=== PATIENT | female | born 1955 | race American Indian/Alaskan Native ===

== ENCOUNTER 2018-05-18 16:04 | Emergency (ER) | payer OTHER ==
[2018-05-18 17:04] LABS: Hematocrit 38.3 % (30.3-42.9); Hemoglobin 12.2 gm/dl (10.1-14.3); Mean Corpuscular HGB Conc 32 % (30-34); Mean Corpuscular Volume 82 fl (79-97); Platelet Count 126 K/mm3 (140-440); Red Blood Count 4.68 M/mm3 (3.65-5.03); Red Cell Distribution Width 16.8 % (13.2-15.2)
[2018-05-18 17:22] LABS: BUN/Creatinine Ratio 19; Blood Urea Nitrogen 19 mg/dL (7-17); Calcium 9.3 mg/dL (8.4-10.2); Hemolysis Index 12
--- NOTE | 2018-05-18 20:47 | Cat Scan Report ---
FINAL REPORT PROCEDURE: CT HEAD WO CONTRAST TECHNIQUE: Computerized tomography of the head was performed without contrast material. HISTORY: h/a dizziness COMPARISON: No prior studies are available for comparison. FINDINGS: Brain: There is no evidence of intracranial hemorrhage. No parenchymal hemorrhage is seen. No mass lesions or mass effect is identified. No abnormal extra-axial fluid collections or masses are seen. There is some decreased density seen in the periventricular white matter without mass effect. This i s fairly symmetric and does not exhibit any mass effect consistent with gliosis probably on the basis of microvascular disease or white matter changes of aging. Ventricles: The ventricles, sulcal pattern and fissures are prominent consistent with atrophy. Bones: No evidence of acute fracture. Paranasal sinuses: There is opacification of most of the ethmoid air cells. The left side of the sphe noid sinus is also opacified. There is mucosal thickening in the visualized portion of the right sphe noid sinus. Mucosal thickening and an air-fluid level is present in the left frontal sinus. There duarte ears to be some frothy mucous in the visualized portion of the right frontal sinus. Mastoid air cells: Visualized portions are clear. IMPRESSION: There is evidence of atrophy and gliosis. No acute intracranial abnormalities are identified. Diffuse paranasal sinus disease as described. This is fairly extensive. Air-fluid level and mucosal t hickening in the left frontal sinus suggest acute sinusitis.
--- NOTE | 2018-05-18 22:04 | Emergency Department Report ---
ED Headache HPI - General Chief Complaint: Headache Stated Complaint: HEADACHE/NOSE BLEED Time Seen by Provider: 05/18/18 21:55 - History of Present Illness Initial Comments: Patient is 62 years old female with history of hypertension and recent balloon and sinusplasty surgery last Friday. Patient presented to the ER complaining of headache and unable to breathe out of her right nasal passage. She also complained of right facial swelling. Patient stated that she tried to call ENT but no answer. Patient denied any fever, chills, weakness numbness or tingling sensation. Timing/Duration: 24 hours Quality: moderate Head Injury Location: frontal Recent Head Trauma: no recent headache/trauma Modifying Factors: worse with: cold therapy, exposure to light, immobilization, medication, movement, rest, other Associated Symptoms: denies: denies symptoms, confusion, fatigue, facial pain, fever/chills, flushing, loss of consciousness, nausea/vomiting, nasal congestion, nasal drainage, numbness in legs/feet, rash, seizures, sinus infection, stiff neck, vision changes, weakness, other Allergies/Adverse Reactions: Allergies No Known Allergies Allergy (Verified 02/16/13 15:43) Home Medications: Ambulatory Orders Celecoxib [celeBREX] 50 mg PO BID 02/16/13 Furosemide [Lasix] 40 mg PO DAILY 02/16/13 Lisinopril [Zestril TAB] 2.5 mg PO QDAY 02/16/13 Metoprolol [Lopressor TAB] 50 mg PO BID 02/16/13 Nitroglycerin [Nitrostat] 0.4 mg SL Q5M 02/16/13 Potassium Chloride 20 meq PO QDAY 02/16/13 Pravastatin Sodium [Pravastatin] 10 mg PO QHS 02/16/13 Albuterol Sulfate [Ventolin HFA] 2 puff IH Q4H PRN 10/13/13 Aspirin [[place] Aspirin] 81 mg PO DAILY 10/13/13 ED Review of Systems ROS: Stated complaint: HEADACHE/NOSE BLEED Other details as noted in HPI Comment: All other systems reviewed and negative Constitutional: denies: chills, fever ENT: congestion Respiratory: denies: cough, shortness of breath Cardiovascular: denies: chest pain, palpitations Gastrointestinal: denies: abdominal pain, nausea, vomiting, diarrhea, constipation, hematemesis, melena, hematochezia Musculoskeletal: denies: back pain Neurological: headache. denies: weakness, numbness, paresthesias, confusion, abnormal gait ED Past Medical Hx - Past Medical History Hx Hypertension: Yes Hx Congestive Heart Failure: Yes Additional medical history: elevated cholesterol - Surgical History Additional Surgical History: bypass 02/2013 - Social History Smoking Status: Never Smoker Substance Use Type: None - Medications Home Medications: Home Medications Medication Instructions Recorded Confirmed Last Taken Type Celecoxib [celeBREX] 50 mg PO BID 02/16/13 10/13/13 10/12/13 History Furosemide [Lasix] 40 mg PO DAILY 02/16/13 10/13/13 10/12/13 History Lisinopril [Zestril TAB] 2.5 mg PO QDAY 02/16/13 10/13/13 10/12/13 History Metoprolol [Lopressor TAB] 50 mg PO BID 02/16/13 10/13/13 10/12/13 History Nitroglycerin [Nitrostat] 0.4 mg SL Q5M 02/16/13 10/13/13 10/12/13 History Potassium Chloride 20 meq PO QDAY 02/16/13 10/13/13 10/12/13 History Pravastatin Sodium [Pravastatin] 10 mg PO QHS 02/16/13 10/13/13 10/12/13 History Albuterol Sulfate [Ventolin HFA] 2 puff IH Q4H PRN 10/13/13 10/13/13 Unknown History Aspirin [[place]on Aspirin] 81 mg PO DAILY 10/13/13 10/13/13 10/12/13 History ED Physical Exam - General Limitations: No Limitations General appearance: alert, in no apparent distress - Head Head exam: Present: atraumatic, normocephalic, normal inspection - Eye Eye exam: Present: normal appearance, PERRL - ENT ENT exam: Present: normal exam, normal orophraynx, mucous membranes moist, other (right maxillary sinus tenderness) - Neck Neck exam: Present: normal inspection, full ROM. Absent: tenderness, meningismus, lymphadenopathy, thyromegaly - Respiratory Respiratory exam: Present: normal lung sounds bilaterally. Absent: respiratory distress, wheezes, rales, rhonchi, stridor, chest wall tenderness, accessory muscle use, decreased breath sounds, prolonged expiratory - Cardiovascular Cardiovascular Exam: Present: regular rate, normal rhythm, normal heart sounds - GI/Abdominal GI/Abdominal exam: Present: soft, normal bowel sounds. Absent: distended, tenderness, guarding, rebound, rigid, organomegaly, mass, bruit, pulsatile mass, hernia - Extremities Exam Extremities exam: Present: normal inspection, full ROM, normal capillary refill. Absent: pedal edema, calf tenderness - Back Exam Back exam: Present: normal inspection, full ROM. Absent: tenderness, CVA tenderness (R), CVA tenderness (L), muscle spasm, paraspinal tenderness, verte bral tenderness, rash noted - Neurological Exam Neurological exam: Present: alert, oriented X3, CN II-XII intact, normal gait, reflexes normal - Psychiatric Psychiatric exam: Present: normal mood - Skin Skin exam: Present: warm, intact, normal color ED Course Vital Signs 05/18/18 16:27 Temperature 98.5 F Pulse Rate 85 Respiratory 18 Rate Blood Pressure 101/63 O2 Sat by Pulse 98 Oximetry ED Medical Decision Making - Lab Data Result diagrams: 05/18/18 16:41 05/18/18 16:41 - EKG Data -: EKG Interpreted by Mi EKG shows normal: sinus rhythm Rate: normal - EKG Data Interpretation: no acute changes - Radiology Data Radiology results: report reviewed - Medical Decision Making Patient is 62 years old female with history of hypertension and recent balloon and sinusplasty surgery last Friday. Patient presented to the ER complaining of headache and unable to breathe out of her right nasal passage. She also complained of right facial swelling. Patient stated that she tried to call ENT but no answer. Patient denied any fever, chills, weakness numbness or tingling sensation. CT head showed diffuse sinusitis. Patient received morphine and Zofran and Decadron and Rocephin patient stated that better headache is completely resolved. We will prescribe patient Augmentin twice a day for 7 days and prednisone and advised the patient to follow-up with her ENT doctor in the next 2-3 days. Critical care attestation.: If time is entered above; I have spent that time in minutes in the direct care of this critically ill patient, excluding procedure time. ED Disposition Clinical Impression: Headache, Sinusitis, S/P sinus surgery Disposition: - TO HOME OR SELFCARE Is pt being admited?: No Condition: Stable Instructions: Acute Headache (ED), Acute Bacterial Rhinosinusitis (ED) Referrals: CLAUDIA CODY MD [Primary Care Provider] - 3-5 Days
[2018-05-18] MEDS ORDERED: ZOFRAN IV ONE (22:06)
[2018-05-18] MEDS ORDERED: MORPHINE IV ONE (22:06)
[2018-05-18] MEDS ORDERED: ROCEPHIN/NS 1 GM/50 ML 1 GM/50 ML BAG IV ONE (22:07)
[2018-05-18] MEDS ORDERED: DECADRON IV ONE (22:07)
[2018-05-19 01:29] VITALS: BP 130/64
== END 2018-05-19 00:50 | disposition home or self-care (01) ==
LOC: ED 16:04
DX: J01.90 Acute sinusitis, unspecified (principal); I11.0 Hypertensive heart disease with heart failure; I50.9 Heart failure, unspecified; E78.00 Pure hypercholesterolemia, unspecified; Z79.899 Other long term (current) drug therapy
CPT/HCPCS: 36415; 70450; 80048; 85027; 93005; 93010; 96365; 96375; 99284; J0696; J1100; J2270; J2405

== ENCOUNTER 2019-07-02 08:22 | Inpatient (IN) | payer OTHER, MEDICARE ==
[2019-07-02] MEDS ORDERED: ASPIRIN 325 MG TAB PO ONE (08:29)
[2019-07-02 09:05] LABS: Basophils % (Auto) 0.6 % (0.0-1.8); Eosinophils # (Auto) 0.1 K/mm3 (0.0-0.4); Eosinophils % (Auto) 1.7 % (0.0-4.3); Lymphocytes # (Auto) 1.5 K/mm3 (1.2-5.4); Lymphocytes % (Auto) 18.9 % (13.4-35.0); Mean Corpuscular HGB Conc 31 % (30-34); Mean Corpuscular Volume 79 fl (79-97); Monocytes # (Auto) 0.7 K/mm3 (0.0-0.8); Monocytes % (Auto) 8.6 % (0.0-7.3); Platelet Count 107 K/mm3 (140-440); Red Blood Count 4.54 M/mm3 (3.65-5.03); Red Cell Distribution Width 19.4 % (13.2-15.2)
--- NOTE | 2019-07-02 09:22 | XRay Report ---
CHEST 2 VIEWS INDICATION: Chest Pain. COMPARISON: None. FINDINGS: Support devices: None. Heart: Enlarged. Pulmonary vasculature: Increased with redistribution of pulmonary blood flow to the upper lobes. Lungs/pleura: Bilateral streaky lung opacities on the frontal view and a suggestion of bilateral pleu ral thickening. Lung opacities are more confluent on the lateral view in the area of the lower lobes. The costophrenic angles are blunted on the frontal view but are clear on the lateral view. No defini te pleural effusion. No pneumothorax. Additional findings: Median sternotomy wires. IMPRESSION: 1. Cardiomegaly and pulmonary venous hypertension. 2. Bilateral lung opacities and pleural changes appear chronic but an acute pneumonia cannot be exclu ded. Signer Name: Ashu Rodriguez MD Signed: 07/02/2019 9:18 AM Workstation Name: [id number]
[2019-07-02 09:30] LABS: BUN/Creatinine Ratio 11; Blood Urea Nitrogen 11 mg/dL (7-17); Hemolysis Index 0
[2019-07-02] MEDS ORDERED: POTASSIUM CHLORIDE ER 20 MEQ TAB PO ONE (09:31)
--- NOTE | 2019-07-02 10:04 | Emergency Department Report ---
ED Shortness of Breath HPI - General Chief Complaint: Dyspnea/Respdistress Stated Complaint: PAULINE Time Seen by Provider: 07/02/19 09:24 Source: patient Mode of arrival: Wheelchair Limitations: No Limitations - History of Present Illness Initial Comments: 63-year-old female with a past medical history of obesity, CHF, hypertension, elevated cholesterol, and cardiac bypass surgery in 2012 presents to the hospital complaining of shortness of breath x4 days. Patient states dyspnea is worse with exertion and having to prop her pillows up while sleeping at night. Symptoms preceding with nasal congestion with yellow drainage and occasional cough productive of yellow sputum. Occasional sneezing reported. No fever. No recent travel reported. Patient denies contact with a person quarantine for COVID19 exposure or with a COVID19+ patient. Patient compliant with all her medications including Lasix. 3 weeks ago she had bypass placed in her leg for PAD. Patient takes Plavix and denies other blood thinner use. Possible A. fib history but patient is unsure. No pain reported. Room air sat 95-96% at bedside. 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 This cath was likely performed prior to patient's bypass surgery - Related Data Home Medications Medication Instructions Recorded Confirmed Last Taken Furosemide [Lasix] 40 mg PO DAILY 02/16/13 07/02/19 10/12/13 Nitroglycerin [Nitrostat] 0.4 mg SL Q5M PRN 02/16/13 07/02/19 10/12/13 Potassium Chloride 20 meq PO QID 02/16/13 07/02/19 10/12/13 Pravastatin Sodium [Pravastatin] 10 mg PO QHS 02/16/13 07/02/19 10/12/13 Clopidogrel [Plavix] 75 mg PO DAILY 07/02/19 07/02/19 Unknown Lisinopril [Zestril TAB] 2.5 mg PO QDAY 07/02/19 07/02/19 Unknown Metoprolol [Lopressor TAB] 25 mg PO DAILY 07/02/19 07/02/19 Unknown Pregabalin 150 mg PO BID 07/02/19 07/02/19 Unknown carvediloL [Coreg] 3.125 mg PO BID 07/02/19 07/02/19 Unknown metOLazone [Zaroxolyn] 2.5 mg PO Q48HR 07/02/19 07/02/19 Unknown Allergies Allergy/AdvReac Type Severity Reaction Status Date / Time No Known Allergies Allergy Verified 02/16/13 15:43 ED Review of Systems ROS: Stated complaint: PAULINE Other details as noted in HPI Comment: All other systems reviewed and negative ED Past Medical Hx - Past Medical History Previous Medical History?: Yes Hx Hypertension: Yes Hx Congestive Heart Failure: Yes Additional medical history: elevated cholesterol, pad - Surgical History Additional Surgical History: bypass 02/2013 - Social History Smoking Status: Never Smoker Substance Use Type: None - Medications Home Medications: Home Medications Medication Instructions Recorded Confirmed Last Taken Type Furosemide [Lasix] 40 mg PO DAILY 02/16/13 07/02/19 10/12/13 History Nitroglycerin [Nitrostat] 0.4 mg SL Q5M PRN 02/16/13 07/02/19 10/12/13 History Potassium Chloride 20 meq PO QID 02/16/13 07/02/19 10/12/13 History Pravastatin Sodium [Pravastatin] 10 mg PO QHS 02/16/13 07/02/19 10/12/13 History Clopidogrel [Plavix] 75 mg PO DAILY 07/02/19 07/02/19 Unknown History Lisinopril [Zestril TAB] 2.5 mg PO QDAY 07/02/19 07/02/19 Unknown History Metoprolol [Lopressor TAB] 25 mg PO DAILY 07/02/19 07/02/19 Unknown History Pregabalin 150 mg PO BID 07/02/19 07/02/19 Unknown History carvediloL [Coreg] 3.125 mg PO BID 07/02/19 07/02/19 Unknown History metOLazone [Zaroxolyn] 2.5 mg PO Q48HR 07/02/19 07/02/19 Unknown History ED Physical Exam - General Limitations: No Limitations - Other Other exam information: General: No acute distress Head: Atraumatic Eyes: normal appearance ENT: Moist mucous membranes Neck: Normal appearance, no midline tenderness Chest: Mild bibasilar crackles, no accessory muscle use CV: Regular rate and rhythm Abdomen: Soft, normal bowel sounds, nontender, nondistended, no rebound or guarding Back: Normal inspection Extremity: Normal inspection, full range of motion, no calf tenderness or leg edema Neuro: Alert O x 3, no facial asymmetry, speech clear, no gross motor sensory deficit Psych: Appropriate behavior Skin: No rash ED Course Vital Signs 07/02/19 07/02/19 07/02/19 08:26 09:40 09:45 Temperature 97.7 F Pulse Rate 76 88 Respiratory 28 H 20 26 H Rate Blood Pressure 235/103 168/79 Blood Pressure [Left] O2 Sat by Pulse 97 98 Oximetry 07/02/19 07/02/19 07/02/19 10:01 10:15 10:28 Temperature 97.5 F L Pulse Rate 63 Respiratory 18 16 Rate Blood Pressure 164/73 164/73 Blood Pressure [Left] O2 Sat by Pulse 100 100 Oximetry 07/02/19 07/02/19 07/02/19 10:31 11:01 11:15 Temperature Pulse Rate 74 67 66 Respiratory 27 H 22 25 H Rate Blood Pressure 186/86 168/68 168/68 Blood Pressure [Left] O2 Sat by Pulse 98 99 99 Oximetry 07/02/19 07/02/19 07/02/19 11:31 11:45 12:01 Temperature Pulse Rate 73 65 63 Respiratory 16 21 18 Rate Blood Pressure 186/66 186/66 162/86 Blood Pressure [Left] O2 Sat by Pulse 97 99 100 Oximetry 07/02/19 07/02/19 07/02/19 12:15 12:30 12:45 Temperature Pulse Rate 65 65 70 Respiratory 12 20 20 Rate Blood Pressure 162/86 170/90 170/90 Blood Pressure [Left] O2 Sat by Pulse 99 99 99 Oximetry 07/02/19 12:57 Temperature 98.1 F Pulse Rate 63 Respiratory 15 Rate Blood Pressure Blood Pressure 173/81 [Left] O2 Sat by Pulse 100 Oximetry ED Medical Decision Making - Lab Data Result diagrams: 07/02/19 08:43 07/02/19 08:43 Lab Results 07/02/19 07/02/19 07/02/19 Range/Units 08:43 08:43 08:43 WBC 7.9 (4.5-11.0) K/mm3 RBC 4.54 (3.65-5.03) M/mm3 Hgb 11.0 (10.1-14.3) gm/dl Hct 36.0 (30.3-42.9) % MCV 79 (79-97) fl MCH 24 L (28-32) pg MCHC 31 (30-34) % RDW 19.4 H (13.2-15.2) % Plt Count 107 L (140-440) K/mm3 Lymph % (Auto) 18.9 (13.4-35.0) % [place] % (Auto) 8.6 H (0.0-7.3) % Eos % (Auto) 1.7 (0.0-4.3) % Baso % (Auto) 0.6 (0.0-1.8) % Lymph # 1.5 (1.2-5.4) K/mm3 [place] # 0.7 (0.0-0.8) K/mm3 Eos # 0.1 (0.0-0.4) K/mm3 Baso # 0.0 (0.0-0.1) K/mm3 Seg Neutrophils % 70.2 H (40.0-70.0) % Seg Neutrophils # 5.5 (1.8-7.7) K/mm3 Sodium 146 H (137-145) mmol/L Potassium 3.0 L (3.6-5.0) mmol/L Chloride 102.3 (98-107) mmol/L Carbon Dioxide 24 (22-30) mmol/L Anion Gap 23 mmol/L BUN 11 (7-17) mg/dL Creatinine 1.0 (0.7-1.2) mg/dL Estimated GFR > 60 ml/min BUN/Creatinine Ratio 11 % Glucose 102 H (65-100) mg/dL Calcium 9.0 (8.4-10.2) mg/dL Magnesium 1.80 (1.7-2.3) mg/dL Troponin T 0.091 H (0.00-0.029) ng/mL NT-Pro-B Natriuret Pep 2283 H (0-900) pg/mL - EKG Data -: EKG Interpreted by Me (Christiana macias, PAC) EKG shows normal: ST-T waves (No STEMI) - Radiology Data Radiology results: report reviewed CHEST 2 VIEWS INDICATION: Chest Pain. COMPARISON: None. FINDINGS: Support devices: None. Heart: Enlarged. Pulmonary vasculature: Increased with redistribution of pulmonary blood flow to the upper lobes. Lungs/pleura: Bilateral streaky lung opacities on the frontal view and a suggestion of bilateral pleural thickening. Lung opacities are more confluent on the lateral view in the area of the lower lobes. The costophrenic angles are blunted on the frontal view but are clear on the lateral view. No definite pleural effusion. No pneumothorax. Additional findings: Median sternotomy wires. IMPRESSION: 1. Cardiomegaly and pulmonary venous hypertension. 2. Bilateral lung opacities and pleural changes appear chronic but an acute pneumonia cannot be excluded. - Medical Decision Making Patient symptoms suggestive of acute CHF exacerbation. BP improved spontaneously without treatment. P.o. potassium provided for hypokalemia. As pirin provided given elevated troponin however, this appears to be chronic based on previous lab values. Pt does not have cp, repeat pending. Chest x-ray report noted cannot rule out acute pneumonia. Patient has no fever or leukocytosis. A. fib noted on EKG hospitalist informed for admission. pt evaluated by cardiology shortly after admission. sx thought to be due to possible pneumonia. - Differential Diagnosis chf, pneumonia, bronchitis Critical Care Time: No Critical care attestation.: If time is entered above; I have spent that time in minutes in the direct care of this critically ill patient, excluding procedure time. ED Disposition Clinical Impression: Acute CHF, Hypokalemia, Hypertension Disposition: OP ADMIT IP TO THIS HOSP Is pt being admited?: Yes Condition: Stable Time of Disposition: 10:12 (Dr Fischer/hosp)
--- NOTE | 2019-07-02 11:22 | History and Physical Report ---
History of Present Illness Date of examination: 07/02/19 Date of admission: 07/02/19 10:13 Chief complaint: dyspnea History of present illness: 63-year-old female with a past medical history of obesity, CHF, hypertension, elevated cholesterol, ischemic cardiomyopathy with EF 20 to 25% and cardiac bypass surgery in 2012 presents to the hospital complaining of shortness of breath x4 days. Patient states dyspnea is worse with exertion and also reports 3 pillow orthopne.she states that her symptoms was preceded by nasal congestion with yellow drainage and occasional cough productive of yellow sputum. Occasional sneezing reported. No fever. No recent travel reported. Patient denies contact with a person quarantine for COVID19 exposure or with a COVID19+ patient. Patient compliant with all her medications including Lasix. 3 weeks ago she had bypass placed in her leg for PAD. No pain reported. Room air sat 95-96% at bedside. 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 This cath was likely performed prior to patient's bypass surgery Past History Past Medical History: heart failure, hypertension, hyperlipidemia, other (obesity) Past Surgical History: CABG Social history: no significant social history Family history: no significant family history Medications and Allergies Allergies Allergy/AdvReac Type Severity Reaction Status Date / Time No Known Allergies Allergy Verified 02/16/13 15:43 Home Medications Medication Instructions Recorded Confirmed Last Taken Type Furosemide [Lasix] 40 mg PO DAILY 02/16/13 07/02/19 10/12/13 History Nitroglycerin [Nitrostat] 0.4 mg SL Q5M PRN 02/16/13 07/02/19 10/12/13 History Potassium Chloride 20 meq PO QID 02/16/13 07/02/19 10/12/13 History Pravastatin Sodium [Pravastatin] 10 mg PO QHS 02/16/13 07/02/19 10/12/13 History Clopidogrel [Plavix] 75 mg PO DAILY 07/02/19 07/02/19 Unknown History Lisinopril [Zestril TAB] 2.5 mg PO QDAY 07/02/19 07/02/19 Unknown History Metoprolol [Lopressor TAB] 25 mg PO DAILY 07/02/19 07/02/19 Unknown History Pregabalin 150 mg PO BID 07/02/19 07/02/19 Unknown History carvediloL [Coreg] 3.125 mg PO BID 07/02/19 07/02/19 Unknown History metOLazone [Zaroxolyn] 2.5 mg PO Q48HR 07/02/19 07/02/19 Unknown History Review of Systems All systems: negative Exam - Constitutional Vitals: Temp Pulse Resp BP Pulse Ox 97.5 F L 67 22 168/68 99 07/02/19 10:28 07/02/19 11:01 07/02/19 11:01 07/02/19 11:01 07/02/19 11:01 General appearance: Present: no acute distress, well-nourished - EENT Eyes: Present: PERRL ENT: hearing intact, clear oral mucosa - Neck Neck: Present: supple, normal ROM - Respiratory Respiratory effort: normal Respiratory: bilateral: CTA - Cardiovascular Heart Sounds: Present: S1 & S2. Absent: rub, click - Extremities Extremities: pulses symmetrical, No edema Peripheral Pulses: within normal limits - Abdominal General gastrointestinal: Present: soft, non-tender, non-distended, normal bowel sounds Female genitourinary: Present: normal - Integumentary Integumentary: Present: clear, warm, dry - Musculoskeletal Musculoskeletal: gait normal, strength equal bilaterally - Psychiatric Psychiatric: appropriate mood/affect, intact judgment & insight - Neurologic Neurologic: CNII-XII intact, moves all extremities MELISSA score - Melissa Score Age > 65: (0) No Aspirin use within the Past 7 Days: (0) No 3 or more CAD Risk Factors: (0) No 2 or more Angina events in past 24 hrs: (0) No Known CAD with more than 50% Stenosis: (0) No Elevated Cardiac Markers: (0) No ST Deviation Greater than 0.5mm: (0) No MELISSA Score: 0 Results - Labs CBC & Chem 7: 07/02/19 08:43 07/02/19 08:43 Labs: Laboratory Last Values WBC 7.9 K/mm3 (4.5-11.0) 07/02/19 08:43 RBC 4.54 M/mm3 (3.65-5.03) 07/02/19 08:43 Hgb 11.0 gm/dl (10.1-14.3) 07/02/19 08:43 Hct 36.0 % (30.3-42.9) 07/02/19 08:43 MCV 79 fl (79-97) 07/02/19 08:43 MCH 24 pg (28-32) L 07/02/19 08:43 MCHC 31 % (30-34) 07/02/19 08:43 RDW 19.4 % (13.2-15.2) H 07/02/19 08:43 Plt Count 107 K/mm3 (140-440) L 07/02/19 08:43 Lymph % (Auto) 18.9 % (13.4-35.0) 07/02/19 08:43 [place] % (Auto) 8.6 % (0.0-7.3) H 07/02/19 08:43 Eos % (Auto) 1.7 % (0.0-4.3) 07/02/19 08:43 Baso % (Auto) 0.6 % (0.0-1.8) 07/02/19 08:43 Lymph # 1.5 K/mm3 (1.2-5.4) 07/02/19 08:43 [place] # 0.7 K/mm3 (0.0-0.8) 07/02/19 08:43 Eos # 0.1 K/mm3 (0.0-0.4) 07/02/19 08:43 Baso # 0.0 K/mm3 (0.0-0.1) 07/02/19 08:43 Seg Neutrophils % 70.2 % (40.0-70.0) H 07/02/19 08:43 Seg Neutrophils # 5.5 K/mm3 (1.8-7.7) 07/02/19 08:43 Sodium 146 mmol/L (137-145) H 07/02/19 08:43 Potassium 3.0 mmol/L (3.6-5.0) L 07/02/19 08:43 Chloride 102.3 mmol/L (98-107) 07/02/19 08:43 Carbon Dioxide 24 mmol/L (22-30) 07/02/19 08:43 Anion Gap 23 mmol/L 07/02/19 08:43 BUN 11 mg/dL (7-17) 07/02/19 08:43 Creatinine 1.0 mg/dL (0.7-1.2) 07/02/19 08:43 Estimated GFR > 60 ml/min 07/02/19 08:43 BUN/Creatinine Ratio 11 % 07/02/19 08:43 Glucose 102 mg/dL (65-100) H 07/02/19 08:43 Calcium 9.0 mg/dL (8.4-10.2) 07/02/19 08:43 Magnesium 1.80 mg/dL (1.7-2.3) 07/02/19 08:43 Troponin T 0.091 ng/mL (0.00-0.029) H 07/02/19 08:43 NT-Pro-B Natriuret Pep 2283 pg/mL (0-900) H 07/02/19 08:43 Francis/IV: IV Catheter Type [Right INT / Saline Lock Forearm] Assessment and Plan Assessment and plan: Acute systolic CHF exacerbation. Patient with elevated beta natruretic peptide and chest x-ray findings revealing chronic changes/pleural thickening. Considered CTA of the chest. Patient has no evidence of fever or leukopenia/lymphopenia. No reports of cough. Patient denies contact with a person quarantine for COVID19 exposure or with a COVID19+ patient. Cardiology consultation. Start IV Lasix. CHF protocol. Hyperlipidemia. Continue statin. Morbid obesity. Patient will be counseled on weight loss, diet and lifestyle modifications at discharge. Hypokalemia. Replete potassium.
[2019-07-02] MEDS ORDERED: ONDANSETRON 4 MG/2 ML INJ IV PRN (11:31)
[2019-07-02] MEDS ORDERED: NITROGLYCERIN 0.4 MG TAB SUBL SL PRN (11:35)
--- NOTE | 2019-07-02 11:41 | Consultation ---
History of Present Illness Consult date: 07/02/19 Consult reason: congestive heart failure, known to you History of present illness: Patient is a 63-year old woman with a cardiac history of ischemic cardiomyopathy, coronary artery disease with bypass grafting in 2013 at [place]. Fixed inferior and apical defects by an MPI in 2017. Her latest echocardiogram done in 2018 documents a low normal left ventricular ejection fraction 45%. Patient is on rate controlling agents for atrial fibrillation. She is no longer on anticoagulation due to history of epistaxis. She also has a history of peripheral vascular disease and is taking plavix. Patient presents to the emergency department with complaints of shortness of breath, coughs and congestion. Patient denies sick contacts. Remains afebrile. She denies chest pain. Initial labs shows a potassium at 3.0 and an elevated BNP. Creatinine is normal. Chest x-ray is suggestive of pneumonia. Her ECG is atrial fibrillation with a well controlled ventricular rate. Cardiology consultation requested. Past History Past Medical History: atrial fib, CAD, heart failure, hypertension, hyperlipidemia, other (obesity) Past Surgical History: CABG Social history: no significant social history Family history: no significant family history Medications and Allergies Allergies Allergy/AdvReac Type Severity Reaction Status Date / Time No Known Allergies Allergy Verified 02/16/13 15:43 Home Medications Medication Instructions Recorded Confirmed Last Taken Type Furosemide [Lasix] 40 mg PO DAILY 02/16/13 07/02/19 10/12/13 History Nitroglycerin [Nitrostat] 0.4 mg SL Q5M PRN 02/16/13 07/02/19 10/12/13 History Potassium Chloride 20 meq PO QID 02/16/13 07/02/19 10/12/13 History Pravastatin Sodium [Pravastatin] 10 mg PO QHS 02/16/13 07/02/19 10/12/13 History Clopidogrel [Plavix] 75 mg PO DAILY 07/02/19 07/02/19 Unknown History Lisinopril [Zestril TAB] 2.5 mg PO QDAY 07/02/19 07/02/19 Unknown History Metoprolol [Lopressor TAB] 25 mg PO DAILY 07/02/19 07/02/19 Unknown History Pregabalin 150 mg PO BID 07/02/19 07/02/19 Unknown History carvediloL [Coreg] 3.125 mg PO BID 07/02/19 07/02/19 Unknown History metOLazone [Zaroxolyn] 2.5 mg PO Q48HR 07/02/19 07/02/19 Unknown History Physical Examination Vital Signs Temp Pulse Resp BP Pulse Ox 97.7 F 76 28 H 235/103 97 07/02/19 08:26 07/02/19 08:26 07/02/19 08:26 07/02/19 08:26 07/02/19 08:26 Results 07/02/19 08:43 07/02/19 08:43 CBC 07/02/19 Range/Units 08:43 WBC 7.9 (4.5-11.0) K/mm3 RBC 4.54 (3.65-5.03) M/mm3 Hgb 11.0 (10.1-14.3) gm/dl Hct 36.0 (30.3-42.9) % Plt Count 107 L (140-440) K/mm3 Lymph # 1.5 (1.2-5.4) K/mm3 [place] # 0.7 (0.0-0.8) K/mm3 Eos # 0.1 (0.0-0.4) K/mm3 Baso # 0.0 (0.0-0.1) K/mm3 Comprehensive Metabolic Panel 07/02/19 Range/Units 08:43 Sodium 146 H (137-145) mmol/L Potassium 3.0 L (3.6-5.0) mmol/L Chloride 102.3 (98-107) mmol/L Carbon Dioxide 24 (22-30) mmol/L BUN 11 (7-17) mg/dL Creatinine 1.0 (0.7-1.2) mg/dL Glucose 102 H (65-100) mg/dL Calcium 9.0 (8.4-10.2) mg/dL Assessment and Plan Atrial fibrillation, rate controlled not on oral anticoagulation due to history of epitaxis Suspected pneumonia as per cxr Hx of ischemic cardiomyopathy Hx of CAD with CABG in 2012 at [facility] on plavix Hypertension Continue medical therapy for atrial fibrillation, ischemic cardiomyopathy and coronary artery disease.
[2019-07-02] MEDS: POTASSIUM CHLORIDE 20 MEQ PACKET PO SCH ×3 (14:02→21:11)
[2019-07-02] MEDS ORDERED: cefTRIAXone/NS 1 GM/50 ML 1 GM/50 ML BAG IV ONE ×2 (15:00→15:46)
[2019-07-02] MEDS ORDERED: AZITHROMYCIN 500 MG in SODIUM CHLORIDE 0.9% 250ML 250 ML IV ONE (16:00)
[2019-07-02 18:35] LABS: Chol/HDL Ratio 4.1 %
[2019-07-02] MEDS: PREGABALIN 75 MG CAP PO SCH (21:12)
[2019-07-02] MEDS: PRAVASTATIN 20 MG TAB PO SCH (21:12)
[2019-07-02] MEDS ORDERED: PREGABALIN 150 MG PO SCH (22:00)
[2019-07-02] MEDS ORDERED: NON-FORMULARY EACH (Pravastatin Sodium [Pravastatin] 10 MG) PO SCH (22:00)
[2019-07-02] MEDS ORDERED: carvediloL 3.125 MG TAB PO SCH (22:00)
[2019-07-03] MEDS: FUROSEMIDE 40 MG/4 ML INJ IV SCH (06:10)
[2019-07-03] MEDS ORDERED: IPRATROPIUM/ALBUTEROL SULFATE 3 ML AMPUL.NEB IH ONE (06:51)
[2019-07-03] MEDS ORDERED: IPRATROPIUM/ALBUTEROL SULFATE 3 ML AMPUL.NEB IH SCH (08:00)
[2019-07-03 08:21] LABS: Basophils % (Auto) 0.5 % (0.0-1.8); Eosinophils # (Auto) 0.1 K/mm3 (0.0-0.4); Eosinophils % (Auto) 1.7 % (0.0-4.3); Hematocrit 37.2 % (30.3-42.9); Hemoglobin 11.5 gm/dl (10.1-14.3); Lymphocytes # (Auto) 1.6 K/mm3 (1.2-5.4); Lymphocytes % (Auto) 19.1 % (13.4-35.0); Mean Corpuscular HGB Conc 31 % (30-34); Mean Corpuscular Volume 79 fl (79-97); Monocytes # (Auto) 0.7 K/mm3 (0.0-0.8); Monocytes % (Auto) 8.7 % (0.0-7.3); Platelet Count 107 K/mm3 (140-440); Red Blood Count 4.69 M/mm3 (3.65-5.03); Red Cell Distribution Width 19.1 % (13.2-15.2)
[2019-07-03] MEDS: POTASSIUM CHLORIDE 20 MEQ PACKET PO SCH ×5 (08:32→21:24)
[2019-07-03] MEDS: ENOXAPARIN 40 MG/0.4 ML INJ SUB-Q SCH ×2 (08:32→14:35)
[2019-07-03] MEDS: carvediloL 6.25 MG TAB PO SCH ×3 (08:33→21:23)
[2019-07-03] MEDS: PREGABALIN 75 MG CAP PO SCH ×3 (08:34→21:24)
[2019-07-03] MEDS: LISINOPRIL 5 MG TAB PO SCH ×2 (08:34→14:32)
[2019-07-03] MEDS: CLOPIDOGREL 75 MG TAB PO SCH ×2 (08:35→14:33)
[2019-07-03 09:11] LABS: BUN/Creatinine Ratio 11; Blood Urea Nitrogen 11 mg/dL (7-17); Calcium 9.3 mg/dL (8.4-10.2); Hemolysis Index 5
[2019-07-03] MEDS: IPRATROPIUM/ALBUTEROL SULFATE 3 ML AMPUL.NEB IH SCH ×3 (09:27→21:09)
[2019-07-03] MEDS ORDERED: METOPROLOL TARTRATE 25 MG TAB PO SCH (10:00)
[2019-07-03] MEDS ORDERED: NON-FORMULARY EACH (Lisinopril [Zestril Tab] 2.5 MG) PO SCH (10:00)
--- NOTE | 2019-07-03 11:28 | Progress Note ---
Assessment and Plan Assessment and plan: Acute systolic CHF exacerbation. Patient with elevated beta natruretic peptide and chest x-ray findings revealing chronic changes/pleural thickening. Patient has no evidence of fever or leukopenia/lymphopenia. No reports of cough. Patient denies contact with a person quarantine for COVID19 exposure or with a COVID19+ patient. Cardiology reports suspicion for [place] VID19. ?COVID19. Cardiology suspects. We will check procalcitonin, lactic acid and d-dimer. Consider CTA of chest. Survey form submitted. ID consultation. Hyperlipidemia. Continue statin. Morbid obesity. Patient will be counseled on weight loss, diet and lifestyle modifications at discharge. Hypokalemia. Replete potassium. History Interval history: No new issues overnight. Hospitalist Physical - Constitutional Vitals: Temp Pulse Resp BP Pulse Ox 97.9 F 76 20 170/86 97 07/03/19 05:56 07/03/19 09:27 07/03/19 09:27 07/03/19 08:34 07/03/19 07:00 General appearance: Present: no acute distress, well-nourished - EENT Eyes: Present: PERRL, EOM intact ENT: hearing intact, clear oral mucosa, dentition normal - Neck Neck: Present: supple, normal ROM - Respiratory Respiratory effort: normal Respiratory: bilateral: CTA - Cardiovascular Rhythm: regular Heart Sounds: Present: S1 & S2. Absent: gallop, rub - Extremities Extremities: no ischemia, No edema, Full ROM - Abdominal General gastrointestinal: soft, non-tender, non-distended, normal bowel sounds - Integumentary Integumentary: Present: clear, warm, dry - Neurologic Neurologic: CNII-XII intact, moves all extremities MELISSA score - Melissa Score Age > 65: (0) No Aspirin use within the Past 7 Days: (0) No 3 or more CAD Risk Factors: (0) No 2 or more Angina events in past 24 hrs: (0) No Known CAD with more than 50% Stenosis: (0) No Elevated Cardiac Markers: (0) No ST Deviation Greater than 0.5mm: (0) No MELISSA Score: 0 Results - Labs CBC & Chem 7: 07/03/19 07:28 07/03/19 07:28 Labs: Laboratory Last Values WBC 8.3 K/mm3 (4.5-11.0) 07/03/19 07:28 RBC 4.69 M/mm3 (3.65-5.03) 07/03/19 07:28 Hgb 11.5 gm/dl (10.1-14.3) 07/03/19 07:28 Hct 37.2 % (30.3-42.9) 07/03/19 07:28 MCV 79 fl (79-97) 07/03/19 07:28 MCH 25 pg (28-32) L 07/03/19 07:28 MCHC 31 % (30-34) 07/03/19 07:28 RDW 19.1 % (13.2-15.2) H 07/03/19 07:28 Plt Count 107 K/mm3 (140-440) L 07/03/19 07:28 Lymph % (Auto) 19.1 % (13.4-35.0) 07/03/19 07:28 [place] % (Auto) 8.7 % (0.0-7.3) H 07/03/19 07:28 Eos % (Auto) 1.7 % (0.0-4.3) 07/03/19 07:28 Baso % (Auto) 0.5 % (0.0-1.8) 07/03/19 07:28 Lymph # 1.6 K/mm3 (1.2-5.4) 07/03/19 07:28 [place] # 0.7 K/mm3 (0.0-0.8) 07/03/19 07:28 Eos # 0.1 K/mm3 (0.0-0.4) 07/03/19 07:28 Baso # 0.0 K/mm3 (0.0-0.1) 07/03/19 07:28 Seg Neutrophils % 70.0 % (40.0-70.0) 07/03/19 07: Seg Neutrophils # 5.8 K/mm3 (1.8-7.7) 07/03/19 07:28 D-Dimer 466.24 ng/mlDDU (0-234) H 07/03/19 10:20 Sodium 142 mmol/L (137-145) 07/03/19 07:28 Potassium 3.7 mmol/L (3.6-5.0) D 07/03/19 07:28 Chloride 99.4 mmol/L (98-107) 07/03/19 07:28 Carbon Dioxide 27 mmol/L (22-30) 07/03/19 07:28 Anion Gap 19 mmol/L 07/03/19 07:28 BUN 11 mg/dL (7-17) 07/03/19 07:28 Creatinine 1.0 mg/dL (0.7-1.2) 07/03/19 07:28 Estimated GFR > 60 ml/min 07/03/19 07:28 BUN/Creatinine Ratio 11 % 07/03/19 07:28 Glucose 113 mg/dL (65-100) H 07/03/19 07:28 Lactic Acid 2.60 mmol/L (0.7-2.0) H* 07/03/19 10:20 Calcium 9.3 mg/dL (8.4-10.2) 07/03/19 07:28 Magnesium 1.80 mg/dL (1.7-2.3) 07/02/19 08:43 Troponin T 0.068 ng/mL (0.00-0.029) H 07/02/19 20:06 NT-Pro-B Natriuret Pep 2283 pg/mL (0-900) H 07/02/19 08:43 Triglycerides 144 mg/dL (2-149) 07/02/19 17:11 Cholesterol 123 mg/dL (50-199) 07/02/19 17:11 LDL Cholesterol Direct 70 mg/dL (50-130) 07/02/19 17:11 HDL Cholesterol 30 mg/dL (40-59) L 07/02/19 17:11 Cholesterol/HDL Ratio 4.10 % 07/02/19 17:11 Procalcitonin < 0.05 ng/mL (<0.15) 07/03/19 10:20 Microbiology: Microbiology 07/02/19 17:11 Peripheral/Venous Blood Culture - Preliminary Culture in Progress 07/02/19 Unknown Peripheral/Venous Blood Culture - Preliminary Culture in Progress Francis/IV: Voiding Method Toilet IV Catheter Type [Right INT / Saline Lock Forearm] Active Medications - Current Medications Current Medications: Generic Name Dose Route Start Last Admin Trade Name Freq PRN Reason Stop Dose Admin Acetaminophen 650 mg 07/02/19 11:31 Tylenol PO Q4H PRN Pain MILD(1-3)/Fever >100.5/ARIAS Albuterol/Ipratropium 1 ampul 07/03/19 08:00 07/03/19 09:27 Duoneb *Not For Prn Use* IH 1 ampul TIDRT KATALINA Administration Carvedilol 6.25 mg 07/03/19 10:00 07/03/19 08:33 Coreg PO 6.25 mg BID KATALINA Administration Clopidogrel Bisulfate 75 mg 07/03/19 10:00 07/03/19 08:35 Plavix PO 75 mg DAILY [facility] Administration Enoxaparin Sodium 40 mg 07/03/19 10:00 07/03/19 08:32 Enoxaparin SUB-Q 40 mg QDAY [facility] Administration Furosemide 40 mg 07/03/19 06:00 07/03/19 06:10 Lasix IV 40 mg DAILY@0600 [facility] Administration Lisinopril 2.5 mg 07/03/19 10:00 07/03/19 08:34 Zestril PO 2.5 mg QDAY [facility] Administration Metolazone 2.5 mg 07/04/19 10:00 Zaroxolyn PO Q48HR [facility] Nitroglycerin 0.4 mg 07/02/19 11:35 Nitrostat SL Q5M PRN Chest Pain Ondansetron HCl 4 mg 07/02/19 11:31 Zofran IV Q8H PRN Nausea And Vomiting Potassium Chloride 20 meq 07/02/19 14:00 07/03/19 08:32 Potassium Chloride PO 20 meq QID [facility] Administration Pravastatin Sodium 10 mg 07/02/19 22:00 07/02/19 21:12 Pravachol PO 10 mg QHS [facility] Administration Pregabalin 150 mg 07/02/19 22:00 07/03/19 08:34 Pregabalin PO 150 mg BID [facility]ATALINA Administration Sodium Chloride 10 ml 07/02/19 22:00 07/02/19 21:13 Sodium Chloride Flush Syringe 10 Ml IV 10 ml BID KATALINA Administration Sodium Chloride 10 ml 07/02/19 11:31 07/03/19 06:10 Sodium Chloride Flush Syringe 10 Ml IV 10 ml PRN PRN Administration LINE FLUSH Nutrition/Malnutrition Assess - Dietary Evaluation Nutrition/Malnutrition Findings: Nutrition Notes Start: 07/03/19 10:56 Freq: Status: Active Protocol: Document 07/03/19 10:56 LM (Rec: 07/03/19 11:12 LM [email or web address]) Nutrition Notes Need for Assessment generated from: MD Order,barrel inspector,MST Initial or Follow up Assessment Current Diagnosis Hypertension,Heart Failure Other Pertinent Diagnosis SOB, suspected pneu, L leg wound Current Diet Cardiac Labs/Tests Reviewed Pertinent Medications Reviewed Height 5 ft 6 in Weight 99.79 kg Usual Body Weight 100 kg [place] Body Weight (kg) 59.09 BMI 35.5 Intake Prior to Admission Poor Weight Status Obese Subjective/Other Information MD consult for poor oral intakes/ONS and RN screen for MST. Pt stated she was not eating much at home for 3 days and just started to eat again last night and this morning. Notice pt is with L leg wound. Food preferences taken. Will order Ensure for pt once daily . Burn Absent Trauma Absent GI Symptoms None Current % PO Fair (50-74%) Minimum of two criteria No Fluid Accumulation Mild (non-severe) #2 Nutrition Diagnosis Increased nutrient needs ( specify in comment below) Comments: Protein Etiology Wound healing As Evidenced by Signs and Symptoms Pt with L leg wound #1 Nutrition Diagnosis Inadequate oral intake Etiology SOB, fever, suspected pneu As Evidenced by Signs and Symptoms Pt with poor intakes for 4 days Is patient on ventilator? No Is Patient Ambulatory and/or Out of Bed Yes REE-([place]-ambulatory/OOB) [ 2026.54 NUTR.MSJOOB] Kcal/Kg value to use for calculation 16 Approximate Energy Requirements Using 1597 kcal/Kg Calculation Used for Recommendations Kcal/kg Additional Notes Protein: 100-120g (1.25-1.5g/ kg using AdjBW 80kg) Fluid: 1 ml/kcal Nutrition Intervention Change Diet Order: Continue cardiac Add Supplement/Snack (indicate name/kcal Ensure Enlive strawberry and /protein ) chocolate daily Provides kCal: 350 Provides Protein (gm) 20 Goal #1 Meet at least 75% of energy and protein needs Goal #2 Wound healing Anticipated Discharge Needs: Cardiac Follow-Up By: 07/06/19 Additional Comments F/U for intakes
[2019-07-03] MEDS: PRAVASTATIN 20 MG TAB PO SCH (21:23)
[2019-07-04] MEDS: FUROSEMIDE 40 MG/4 ML INJ IV SCH (06:33)
[2019-07-04] MEDS: IPRATROPIUM/ALBUTEROL SULFATE 3 ML AMPUL.NEB IH SCH ×3 (08:46→21:03)
[2019-07-04] MEDS: carvediloL 6.25 MG TAB PO SCH ×2 (09:16→23:35)
[2019-07-04] MEDS: ENOXAPARIN 40 MG/0.4 ML INJ SUB-Q SCH (09:17)
[2019-07-04] MEDS: CLOPIDOGREL 75 MG TAB PO SCH (09:17)
[2019-07-04] MEDS: PREGABALIN 75 MG CAP PO SCH ×2 (09:19→23:34)
[2019-07-04] MEDS: POTASSIUM CHLORIDE 20 MEQ PACKET PO SCH ×4 (09:19→23:35)
[2019-07-04] MEDS: metOLazone 2.5 MG TAB PO SCH (09:20)
[2019-07-04] MEDS: LISINOPRIL 5 MG TAB PO SCH (09:20)
--- NOTE | 2019-07-04 09:48 | Progress Note ---
Assessment and Plan Assessment and plan: Acute systolic CHF exacerbation. Patient with elevated beta natruretic peptide and chest x-ray findings revealing chronic changes/pleural thickening. Patient has no evidence of fever or leukopenia/lymphopenia. No reports of cough. Patient denies contact with a person quarantine for COVID19 exposure or with a COVID19+ patient. Cardiology reports suspicion for [place] VID19. ?COVID19. Cardiology suspects. We will check procalcitonin, lactic acid and d-dimer. Consider CTA of chest. Survey form submitted. ID consultation. Hyperlipidemia. Continue statin. Morbid obesity. Patient will be counseled on weight loss, diet and lifestyle modifications at discharge. Hypokalemia. Replete potassium. 07/04/2019lactic acid level mildly elevated and procalcitonin level normal. Check CT scan of the chest for groundglass infiltrates given COVID19 suspicion. ID consultation pending. Patient reported no cough previously but reporting more coughing last night and today. Still no fever since admission or [employer]. 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 History Interval history: No new issues overnight. Hospitalist Physical - Constitutional Vitals: Temp Pulse Resp BP Pulse Ox 97.8 F 66 20 135/62 99 07/03/19 17:23 07/04/19 09:20 07/04/19 08:55 07/04/19 09:20 07/04/19 09:19 General appearance: Present: no acute distress, well-nourished - EENT Eyes: Present: PERRL, EOM intact ENT: hearing intact, clear oral mucosa, dentition normal - Neck Neck: Present: supple, normal ROM - Respiratory Respiratory effort: normal Respiratory: bilateral: CTA - Cardiovascular Rhythm: regular Heart Sounds: Present: S1 & S2. Absent: gallop, rub - Extremities Extremities: no ischemia, No edema, Full ROM - Abdominal General gastrointestinal: soft, non-tender, non-distended, normal bowel sounds - Integumentary Integumentary: Present: clear, warm, dry - Neurologic Neurologic: CNII-XII intact, moves all extremities MELISSA score - Melissa Score Age > 65: (0) No Aspirin use within the Past 7 Days: (0) No 3 or more CAD Risk Factors: (0) No 2 or more Angina events in past 24 hrs: (0) No Known CAD with more than 50% Stenosis: (0) No Elevated Cardiac Markers: (0) No ST Deviation Greater than 0.5mm: (0) No MELISSA Score: 0 Results - Labs CBC & Chem 7: 07/03/19 07:28 07/03/19 07:28 Labs: Laboratory Last Values WBC 8.3 K/mm3 (4.5-11.0) 07/03/19 07: RBC 4.69 M/mm3 (3.65-5.03) 07/03/19 07: Hgb 11.5 gm/dl (10.1-14.3) 07/03/19 07: Hct 37.2 % (30.3-42.9) 07/03/19 07: MCV 79 fl (79-97) 07/03/19: MCH 25 pg (28-32) L 07/03/19 07: MCHC 31 % (30-34) 07/03/19 07: RDW 19.1 % (13.2-15.2) H 07/03/19 07: Plt Count 107 K/mm3 (140-440) L 07/03/19 07: Lymph % (Auto) 19.1 % (13.4-35.0) 07/03/19 07: [place] % (Auto) 8.7 % (0.0-7.3) H 07/03/19 07: Eos % (Auto) 1.7 % (0.0-4.3) 07/03/19 07: Baso % (Auto) 0.5 % (0.0-1.8) 07/03/19 07: Lymph # 1.6 K/mm3 (1.2-5.4) 07/03/19 07:28 [place] # 0.7 K/mm3 (0.0-0.8) 07/03/19 07: Eos # 0.1 K/mm3 (0.0-0.4) 07/03/19 07: Baso # 0.0 K/mm3 (0.0-0.1) 07/03/19 07: Seg Neutrophils % 70.0 % (40.0-70.0) 07/03/19 07: Seg Neutrophils # 5.8 K/mm3 (1.8-7.7) 07/03/19 07:28 D-Dimer 466.24 ng/mlDDU (0-234) H 07/03/19 10:20 Sodium 142 mmol/L (137-145) 07/03/19 07:28 Potassium 3.7 mmol/L (3.6-5.0) D 07/03/19 07:28 Chloride 99.4 mmol/L (98-107) 07/03/19 07:28 Carbon Dioxide 27 mmol/L (22-30) 07/03/19 07:28 Anion Gap 19 mmol/L 07/03/19 07:28 BUN 11 mg/dL (7-17) 07/03/19 07:28 Creatinine 1.0 mg/dL (0.7-1.2) 07/03/19 07:28 Estimated GFR > 60 ml/min 07/03/19 07:28 BUN/Creatinine Ratio 11 % 07/03/19 07:28 Glucose 113 mg/dL (65-100) H 07/03/19 07:28 POC Glucose 160 (70-105) H 07/03/19 21:13 Lactic Acid 2.40 mmol/L (0.7-2.0) H* 07/03/19 20:27 Calcium 9.3 mg/dL (8.4-10.2) 07/03/19 07:28 Magnesium 1.80 mg/dL (1.7-2.3) 07/02/19 08:43 Troponin T 0.068 ng/mL (0.00-0.029) H 07/02/19 20:06 NT-Pro-B Natriuret Pep 2283 pg/mL (0-900) H 07/02/19 08:43 Triglycerides 144 mg/dL (2-149) 07/02/19 17:11 Cholesterol 123 mg/dL (50-199) 07/02/19 17:11 LDL Cholesterol Direct 70 mg/dL (50-130) 07/02/19 17:11 HDL Cholesterol 30 mg/dL (40-59) L 07/02/19 17:11 Cholesterol/HDL Ratio 4.10 % 07/02/19 17:11 Procalcitonin < 0.05 ng/mL (<0.15) 07/03/19 10:20 Microbiology: Microbiology 07/02/19 17:11 Peripheral/Venous Blood Culture - Preliminary NO GROWTH AFTER 24 HOURS 07/02/19 Unknown Peripheral/Venous Blood Culture - Preliminary NO GROWTH AFTER 24 HOURS Francis/IV: Voiding Method Toilet IV Catheter Type [Right INT / Saline Lock Forearm] Active Medications - Current Medications Current Medications: Generic Name Dose Route Start Last Admin Trade Name Freq PRN Reason Stop Dose Admin Acetaminophen 650 mg 07/02/19 11:31 Tylenol PO Q4H PRN Pain MILD(1-3)/Fever >100.5/ARIAS Albuterol/Ipratropium 1 ampul 07/03/19 08:00 07/04/19 08:46 Duoneb *Not For Prn Use* IH 1 ampul TIDRT KATALINA Administration Carvedilol 6.25 mg 07/03/19 10:00 07/04/19 09:16 Coreg PO 6.25 mg BID [facility] Administration Clopidogrel Bisulfate 75 mg 07/03/19 10:00 07/04/19 09:17 Plavix PO 75 mg DAILY [facility] Administration Enoxaparin Sodium 40 mg 07/03/19 10:00 07/04/19 09:17 Enoxaparin SUB-Q 40 mg QDAY [facility] Administration Furosemide 40 mg 07/03/19 06:00 07/04/19 06:33 Lasix IV 40 mg DAILY@0600 [facility] Administration Lisinopril 2.5 mg 07/03/19 10:00 07/04/19 09:20 Zestril PO 2.5 mg QDAY [facility] Administration Metolazone 2.5 mg 07/04/19 10:00 07/04/19 09:20 Zaroxolyn PO 2.5 mg Q48HR [facility] Administration Nitroglycerin 0.4 mg 07/02/19 11:35 Nitrostat SL Q5M PRN Chest Pain Ondansetron HCl 4 mg 07/02/19 11:31 Zofran IV Q8H PRN Nausea And Vomiting Potassium Chloride 20 meq 07/02/19 14:00 07/04/19 09:19 Potassium Chloride PO 20 meq QID [facility] Administration Pravastatin Sodium 10 mg 07/02/19 22:00 07/03/19 21:23 Pravachol PO 10 mg QHS [facility] Administration Pregabalin 150 mg 07/02/19 22:00 07/04/19 09:19 Pregabalin PO 150 mg BID [facility] Administration Sodium Chloride 10 ml 07/02/19 22:00 07/04/19 09:20 Sodium Chloride Flush Syringe 10 Ml IV 10 ml BID KATALINA Administration Sodium Chloride 10 ml 07/02/19 11:31 07/04/19 06:34 Sodium Chloride Flush Syringe 10 Ml IV 10 ml PRN PRN Administration LINE FLUSH Nutrition/Malnutrition Assess - Dietary Evaluation Nutrition/Malnutrition Findings: Nutrition Notes Start: 07/03/19 10:56 Freq: Status: Active Protocol: Document 07/03/19 10:56 LM (Rec: 07/03/19 11:12 LM [email or web address]) Nutrition Notes Need for Assessment generated from: MD Order,floorworker,MST Initial or Follow up Assessment Current Diagnosis Hypertension,Heart Failure Other Pertinent Diagnosis SOB, suspected pneu, L leg wound Current Diet Cardiac Labs/Tests Reviewed Pertinent Medications Reviewed Height 5 ft 6 in Weight 99.79 kg Usual Body Weight 100 kg [place] Body Weight (kg) 59.09 BMI 35.5 Intake Prior to Admission Poor Weight Status Obese Subjective/Other Information MD consult for poor oral intakes/ONS and RN screen for MST. Pt stated she was not eating much at home for 3 days and just started to eat again last night and this morning. Notice pt is with L leg wound. Food preferences taken. Will order Ensure for pt once daily . Burn Absent Trauma Absent GI Symptoms None Current % PO Fair (50-74%) Minimum of two criteria No Fluid Accumulation Mild (non-severe) #2 Nutrition Diagnosis Increased nutrient needs ( specify in comment below) Comments: Protein Etiology Wound healing As Evidenced by Signs and Symptoms Pt with L leg wound #1 Nutrition Diagnosis Inadequate oral intake Etiology SOB, fever, suspected pneu As Evidenced by Signs and Symptoms Pt with poor intakes for 4 days Is patient on ventilator? No Is Patient Ambulatory and/or Out of Bed Yes REE-([place]-ambulatory/OOB) [ NUTR.MSJOOB] Kcal/Kg value to use for calculation 16 Approximate Energy Requirements Using 1597 kcal/Kg Calculation Used for Recommendations Kcal/kg Additional Notes Protein: 100-120g (1.25-1.5g/ kg using AdjBW 80kg) Fluid: 1 ml/kcal Nutrition Intervention Change Diet Order: Continue cardiac Add Supplement/Snack (indicate name/kcal Ensure Enlive strawberry and /protein ) chocolate daily Provides kCal: 350 Provides Protein (gm) 20 Goal #1 Meet at least 75% of energy and protein needs Goal #2 Wound healing Anticipated Discharge Needs: Cardiac Follow-Up By: 07/06/19 Additional Comments F/U for intakes
[2019-07-04] MEDS: ACETAMINOPHEN 325 MG TAB PO PRN (10:23)
--- NOTE | 2019-07-04 12:12 | Cat Scan Report ---
CT CHEST WITHOUT CONTRAST INDICATION / CLINICAL INFORMATION: Abnormal chest radiograph. TECHNIQUE: Axial CT images were obtained through the chest without contrast. All CT scans at this location are p erformed using CT dose reduction for ALARA by means of automated exposure control. COMPARISON: Chest radiograph 07/02/2019 FINDINGS: There is significant patient motion artifact. HEART: Marked cardiomegaly with four-chamber dilatation. Postsurgical changes suggestive of previous CABG are present. No pericardial effusion. THORACIC AORTA: No significant abnormality. MEDIASTINUM and BRIAN: No frankly enlarged or necrotic lymph nodes. A mildly prominent left AP window node on series 2 image 39 measuring about 1 cm in short axis is noted. LUNGS: Linear opacities at both lung bases are most suggestive of atelectasis and/or scarring. No acu te parenchymal consolidation, groundglass opacity or discrete nodules identified. PLEURA: No significant pleural effusion. No pneumothorax. ADDITIONAL FINDINGS: None. UPPER ABDOMEN: No significant abnormality. SKELETAL SYSTEM: No significant abnormality. IMPRESSION: 1. Motion limited exam. There are atelectatic changes toward the lung bases, but no definite acute a irspace disease. 2. Marked cardiomegaly. Signer Name: Jermaine Avalos MD Signed: 07/04/2019 12:08 PM Workstation Name: [id number]
--- NOTE | 2019-07-04 13:45 | Consultation ---
History of Present Illness - Reason for Consult Consult date: 07/04/19 - History of Present Illness 63-year-old female past medical history obesity, CHF, hypertension, hyperlipidemia, ischemic cardiomyopathy status post CABG to the hospital shortness of breath for 4 days. She notes that her shortness of breath is worse with exertion and she has worsening orthopnea she also her symptoms were preceded by rhinorrhea with yellow drainage and occasional cough. She also reports some sneezing. She denies any fever, or gastrointestinal symptoms. She denies any recent travel or sick persons. Otherwise been compliant with her medications she also notes recently having a bypass in her leg for peripheral artery disease. Afebrile with a normal white count. Currently receiving levofloxacin. She has increased troponins. Blood cultures are currently pending. Imaging personally reviewed: Chest x-ray: Bilateral lung opacities. CT chest: No obvious consolidation, however there is atelectasis bilaterally Review of Systems: Bold if positive, otherwise negative General: fevers, chills, rigors HEENT: visual disturbance, diplopia, eye pain Respiratory: cough, sputum, hemoptysis, shortness of breath Cardiovascular: chest pain, syncope Gastrointestinal: nausea, vomiting, diarrhea, abdominal pain Genitourinary: dysuria, hematuria, flank pain Musculoskeletal: neck pain, back pain, joint pain, edema Neurologic: headaches, seizures Hematologic: easy bruising or bleeding Endocrine: night sweats, acute weight loss Skin: rash, jaundice, redness Psychiatric: suicidal, homicidal ideation Past History Past Medical History: atrial fib, CAD, heart failure, hypertension, hyperlipidemia, other (obesity) Past Surgical History: CABG Social history: no significant social history Family history: no significant family history Medications and Allergies Allergies Allergy/AdvReac Type Severity Reaction Status Date / Time No Known Allergies Allergy Verified 02/16/13 15:43 Home Medications Medication Instructions Recorded Confirmed Last Taken Type Furosemide [Lasix] 40 mg PO DAILY 02/16/13 07/02/19 10/12/13 History Nitroglycerin [Nitrostat] 0.4 mg SL Q5M PRN 02/16/13 07/02/19 10/12/13 History Potassium Chloride 20 meq PO QID 02/16/13 07/02/19 10/12/13 History Pravastatin Sodium [Pravastatin] 10 mg PO QHS 02/16/13 07/02/19 10/12/13 History Clopidogrel [Plavix] 75 mg PO DAILY 07/02/19 07/02/19 Unknown History Lisinopril [Zestril TAB] 2.5 mg PO QDAY 07/02/19 07/02/19 Unknown History Metoprolol [Lopressor TAB] 25 mg PO DAILY 07/02/19 07/02/19 Unknown History Pregabalin 150 mg PO BID 07/02/19 07/02/19 Unknown History carvediloL [Coreg] 3.125 mg PO BID 07/02/19 07/02/19 Unknown History metOLazone [Zaroxolyn] 2.5 mg PO Q48HR 07/02/19 07/02/19 Unknown History Active Meds: Active Medications Acetaminophen (Tylenol) 650 mg PO Q4H PRN PRN Reason: Pain MILD(1-3)/Fever >100.5/ARIAS Last Admin: 07/04/19 10:23 Dose: 650 mg Documented by: Albuterol/Ipratropium (Duoneb *Not For Prn Use*) 1 ampul IH TIDRT [facility] Last Admin: 07/04/19 08:46 Dose: 1 ampul Documented by: Carvedilol (Coreg) 6.25 mg PO BID [facility] Last Admin: 07/04/19 09:16 Dose: 6.25 mg Documented by: Clopidogrel Bisulfate (Plavix) 75 mg PO DAILY [facility] Last Admin: 07/04/19 09:17 Dose: 75 mg Documented by: Enoxaparin Sodium (Enoxaparin) 40 mg SUB-Q QDAY [facility] Last Admin: 07/04/19 09:17 Dose: 40 mg Documented by: Furosemide (Lasix) 40 mg IV DAILY@0600 [facility] Last Admin: 07/04/19 06:33 Dose: 40 mg Documented by: Levofloxacin/Dextrose (Levaquin 750mg/150ml) 750 mg in 150 mls @ 100 mls/hr IV Q24HR [facility]; Protocol Last Admin: 07/04/19 10:23 Dose: 100 mls/hr Documented by: Lisinopril (Zestril) 2.5 mg PO QDAY [facility] Last Admin: 07/04/19 09:20 Dose: 2.5 mg Documented by: Metolazone (Zaroxolyn) 2.5 mg PO Q48HR [facility] Last Admin: 07/04/19 09:20 Dose: 2.5 mg Documented by: Nitroglycerin (Nitrostat) 0.4 mg SL Q5M PRN PRN Reason: Chest Pain Ondansetron HCl (Zofran) 4 mg IV Q8H PRN PRN Reason: Nausea And Vomiting Potassium Chloride (Potassium Chloride) 20 meq PO QID [facility] Last Admin: 07/04/19 09:19 Dose: 20 meq Documented by: Pravastatin Sodium (Pravachol) 10 mg PO QHS [facility] Last Admin: 07/03/19 21:23 Dose: 10 mg Documented by: Pregabalin (Pregabalin) 150 mg PO BID [facility] Last Admin: 07/04/19 09:19 Dose: 150 mg Documented by: Sodium Chloride (Sodium Chloride Flush Syringe 10 Ml) 10 ml IV BID [facility] Last Admin: 07/04/19 09:20 Dose: 10 ml Documented by: Sodium Chloride (Sodium Chloride Flush Syringe 10 Ml) 10 ml IV PRN PRN PRN Reason: LINE FLUSH Last Admin: 07/04/19 06:34 Dose: 10 ml Documented by: Physical Examination - Physical Exam Narrative exam: Physical Exam: Constitutional: Alert, cooperative. No acute distress Head, Ears, Nose: Normocephalic, atraumatic. External ears, nose normal Eyes: Conjunctivae/corneas clear. No icterus. No ptosis. Neck: Supple, no meningeal signs Oral: dentition fair, no thrush Cardiovascular: S1, S2 normal. Respiratory: Good air entry, clear to auscultation bilaterally GI: Soft, non-tender; bowel sounds normal. No peritoneal signs. Musculoskeletal: No pedal edema, no cyanosis. Skin: No rash or abscess Hem/Lymphatic: No palpable cervical or supraclavicular nodes. No lymphangitis Psych: Mood ok. Affect normal Neurological: Awake, alert, oriented. No gross abnormality - Constitutional Vitals: Vital Signs Temp Pulse Resp BP Pulse Ox 98.5 F 65 20 130/64 94 07/04/19 11:08 07/04/19 11:08 07/04/19 11:08 07/04/19 11:08 07/04/19 11:08 Temperature -Last 24 Hours Temperature 98.5 F Temperature 98.5 F Temperature 98.2 F Temperature 97.8 F Results - Labs CBC & Chem 7: 07/03/19 07:28 07/03/19 07:28 Labs: Abnormal lab results 07/03/19 07/03/19 Range/Units 20:27 21:13 POC Glucose 160 H (70-105) Lactic Acid 2.40 H* (0.7-2.0) mmol/L Assessment and Plan Cultures: Blood culture 07/02/2019 no growth to date A/P:63-year-old female past medical history obesity, CHF, hypertension, hyperlipidemia, ischemic cardiomyopathy status post CABG admitted with shortness of breath, concern for COVID-19 #COVID-19 rule out: Survey filled out by primary team, greatly appreciate their assistance. Follow-up with [facility] for test results. Okay to continue empiric antibiotics to complete 5 total days. No evidence on imaging, however patient with normal white count increased troponins. Cardiology team concern, however may just be cardiogenic in origin. #CHF #HTN Recs: -Obtain sputum culture -Continue droplet and contact precautions -Follow-up [facility] COVID-19 testing -Complete 5 days of levofloxacin -Patient had significant medical comorbidities, as such discharged prior to receiving test results need to be considered cautiously. It is not inherently contraindicated, though chronically unwell patients have poor outcomes decompensate quickly. - Patient may be discharged when medically stable if testing swabs have been obtained. Upon discharge patient should self-quarantine at home until COVID testing returns. If negative, self-quarantine may end. If positive patient should self-quarantine for 14 days from symptom beginning. Public health and infection prevention will follow up with patients to notify them of their test results. Patients should return to hospital regardless if they have worsening fevers or respiratory status. Thank you for the consult, will continue to follow Lebron Stephenson MD [facility] M: [phone] O: [phone] F: [phone]
--- NOTE | 2019-07-04 16:07 | Progress Note ---
Subjective Date of service: 07/04/19 Interval history: Follow-up Continues on oxygen, presented with shortness of breath and yellow phlegm. ID workup in progress, CT scan chest no sig airspace disease. Suspect chronic CHF may play a role. teresa urbano while she is here, she has significant cardiomegaly, suspect EF low er than previously documented. History of present illness: Patient is a 63-year old woman with a cardiac history of ischemic cardiomyopathy, coronary artery disease with bypass grafting in 2012 at [place]. Fixed inferior and apical defects by an MPI in 2017. Her latest echocardiogram done in 2018 documents a low normal left ventricular ejection fraction 45%. Patient is on rate controlling agents for atrial fibrillation. She is no longer on anticoagulation due to history of epistaxis. She also has a history of peripheral vascular disease and is taking plavix. Objective Vital Signs Temp Pulse Pulse Resp Resp BP Pulse Ox 07/04/19 14:55 63 20 97 07/04/19 11:08 98.5 F 65 20 130/64 94 07/04/19 09:20 66 135/62 07/04/19 09:19 99 07/04/19 09:16 66 135/62 07/04/19 08:55 63 20 07/04/19 05:44 98.5 F 59 L 18 139/65 100 07/04/19 02:00 66 07/03/19 23:15 98.2 F 61 18 144/76 100 07/03/19 21:23 66 135/62 07/03/19 21:11 99 07/03/19 21:09 66 20 07/03/19 17:23 97.8 F 63 24 135/62 99 - Physical Examination General: No Apparent Distress HEENT: Positive: PERRL Neck: Positive: neck supple Cardiac: Positive: irregularly irregular, S1/S2 Lungs: Positive: Decreased Breath Sounds Extremities: Present: +1 Edema
[2019-07-04] MEDS: PRAVASTATIN 20 MG TAB PO SCH (23:34)
[2019-07-05] MEDS: ACETAMINOPHEN 325 MG TAB PO PRN (06:01)
[2019-07-05] MEDS: FUROSEMIDE 40 MG/4 ML INJ IV SCH (06:01)
[2019-07-05] MEDS: IPRATROPIUM/ALBUTEROL SULFATE 3 ML AMPUL.NEB IH SCH ×3 (08:49→20:17)
--- NOTE | 2019-07-05 09:56 | Progress Note ---
Assessment and Plan Assessment and plan: Acute systolic CHF exacerbation. Patient with elevated beta natruretic peptide and chest x-ray findings revealing chronic changes/pleural thickening. Patient has no evidence of fever or leukopenia/lymphopenia. No reports of cough. Patient denies contact with a person quarantine for COVID19 exposure or with a COVID19+ patient. Cardiology reports suspicion for [place] VID19. ?COVID19. Cardiology suspects. We will check procalcitonin, lactic acid and d-dimer. Consider CTA of chest. Survey form submitted. ID consultation. Hyperlipidemia. Continue statin. Morbid obesity. Patient will be counseled on weight loss, diet and lifestyle modifications at discharge. Hypokalemia. Replete potassium. 07/04/2019lactic acid level mildly elevated and procalcitonin level normal. Check CT scan of the chest for groundglass infiltrates given COVID19 suspicion. ID consultation pending. Patient reported no cough previously but reporting more coughing last night and today. Still no fever since admission or [employer]. 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 07/05/2019patient is afebrile with a normal white count. Continue empiric Levaquin. CT scan of the chest shows no obvious consolidation, only atelectasis bilaterally. No groundglass opacities. Cardiology team concern with COVID19, however may just be cardiogenic in origin. Elevated troponin per cardiology. Continue droplet and contact precautions for now and obtain sputum culture. History Interval history: No new issues overnight. Hospitalist Physical - Constitutional Vitals: Temp Pulse Resp BP Pulse Ox 97.8 F 61 18 139/65 100 07/05/19 05:44 07/05/19 05:44 07/05/19 05:44 07/05/19 05:44 07/05/19 05:44 General appearance: Present: no acute distress, well-nourished - EENT Eyes: Present: PERRL, EOM intact ENT: hearing intact, clear oral mucosa, dentition normal - Neck Neck: Present: supple, normal ROM - Respiratory Respiratory effort: normal Respiratory: bilateral: CTA - Cardiovascular Rhythm: regular Heart Sounds: Present: S1 & S2. Absent: gallop, rub - Extremities Extremities: no ischemia, No edema, Full ROM - Abdominal General gastrointestinal: soft, non-tender, non-distended, normal bowel sounds - Integumentary Integumentary: Present: clear, warm, dry - Neurologic Neurologic: CNII-XII intact, moves all extremities MELISSA score - Melissa Score Age > 65: (0) No Aspirin use within the Past 7 Days: (0) No 3 or more CAD Risk Factors: (0) No 2 or more Angina events in past 24 hrs: (0) No Known CAD with more than 50% Stenosis: (0) No Elevated Cardiac Markers: (0) No ST Deviation Greater than 0.5mm: (0) No MELISSA Score: 0 Results - Labs CBC & Chem 7: 07/03/19 07:28 07/03/19 07:28 Labs: Laboratory Last Values WBC 8.3 K/mm3 (4.5-11.0) 07/03/19 07:28 RBC 4.69 M/mm3 (3.65-5.03) 07/03/19 07:28 Hgb 11.5 gm/dl (10.1-14.3) 07/03/19 07:28 Hct 37.2 % (30.3-42.9) 07/03/19 07:28 MCV 79 fl (79-97) 07/03/19 07:28 MCH 25 pg (28-32) L 07/03/19 07:28 MCHC 31 % (30-34) 07/03/19 07:28 RDW 19.1 % (13.2-15.2) H 07/03/19 07:28 Plt Count 107 K/mm3 (140-440) L 07/03/19 07:28 Lymph % (Auto) 19.1 % (13.4-35.0) 07/03/19 07:28 [place] % (Auto) 8.7 % (0.0-7.3) H 07/03/19 07:28 Eos % (Auto) 1.7 % (0.0-4.3) 07/03/19 07:28 Baso % (Auto) 0.5 % (0.0-1.8) 07/03/19 07:28 Lymph # 1.6 K/mm3 (1.2-5.4) 07/03/19 07:28 [place] # 0.7 K/mm3 (0.0-0.8) 07/03/19 07:28 Eos # 0.1 K/mm3 (0.0-0.4) 07/03/19 07:28 Baso # 0.0 K/mm3 (0.0-0.1) 07/03/19 07:28 Seg Neutrophils % 70.0 % (40.0-70.0) 07/03/19 07:28 Seg Neutrophils # 5.8 K/mm3 (1.8-7.7) 07/03/19 07:28 D-Dimer 466.24 ng/mlDDU (0-234) H 07/03/19 10:20 Sodium 142 mmol/L (137-145) 07/03/19 07:28 Potassium 3.7 mmol/L (3.6-5.0) D 07/03/19 07:28 Chloride 99.4 mmol/L (98-107) 07/03/19 07:28 Carbon Dioxide 27 mmol/L (22-30) 07/03/19 07:28 Anion Gap 19 mmol/L 07/03/19 07:28 BUN 11 mg/dL (7-17) 07/03/19 07:28 Creatinine 1.0 mg/dL (0.7-1.2) 07/03/19 07:28 Estimated GFR > 60 ml/min 07/03/19 07:28 BUN/Creatinine Ratio 11 % 07/03/19 07:28 Glucose 113 mg/dL (65-100) H 07/03/19 07:28 POC Glucose 140 (70-105) H 07/04/19 22:36 Lactic Acid 2.40 mmol/L (0.7-2.0) H* 07/03/19 20:27 Calcium 9.3 mg/dL (8.4-10.2) 07/03/19 07:28 Magnesium 1.80 mg/dL (1.7-2.3) 07/02/19 08:43 Troponin T 0.068 ng/mL (0.00-0.029) H 07/02/19 20:06 NT-Pro-B Natriuret Pep 2283 pg/mL (0-900) H 07/02/19 08:43 Triglycerides 144 mg/dL (2-149) 07/02/19 17:11 Cholesterol 123 mg/dL (50-199) 07/02/19 17:11 LDL Cholesterol Direct 70 mg/dL (50-130) 07/02/19 17:11 HDL Cholesterol 30 mg/dL (40-59) L 07/02/19 17:11 Cholesterol/HDL Ratio 4.10 % 07/02/19 17:11 Procalcitonin < 0.05 ng/mL (<0.15) 07/03/19 10:20 Microbiology: Microbiology 07/02/19 17:11 Peripheral/Venous Blood Culture - Preliminary NO GROWTH AFTER 48 HOURS 07/02/19 Unknown Peripheral/Venous Blood Culture - Preliminary NO GROWTH AFTER 48 HOURS Francis/IV: Voiding Method Toilet IV Catheter Type [Right INT / Saline Lock Forearm] Active Medications - Current Medications Current Medications: Generic Name Dose Route Start Last Admin Trade Name Freq PRN Reason Stop Dose Admin Acetaminophen 650 mg 07/02/19 11:31 07/05/19 06:01 Tylenol PO 650 mg Q4H PRN Administration Pain MILD(1-3)/Fever >100.5/ARIAS Albuterol/Ipratropium 1 ampul 07/03/19 08:00 07/05/19 08:49 Duoneb *Not For Prn Use* IH 1 ampul TIDRT [facility] Administration Carvedilol 6.25 mg 07/03/19 10:00 07/04/19 23:35 Coreg PO 6.25 mg BID [facility] Administration Clopidogrel Bisulfate 75 mg 07/03/19 10:00 07/04/19 09:17 Plavix PO 75 mg DAILY [facility] Administration Enoxaparin Sodium 40 mg 07/03/19 10:00 07/04/19 09:17 Enoxaparin SUB-Q 40 mg QDAY [facility] Administration Furosemide 40 mg 07/03/19 06:00 07/05/19 06:01 Lasix IV 40 mg DAILY@0600 [facility] Administration Levofloxacin/Dextrose 750 mg in 150 mls @ 100 mls/hr 07/04/19 10:30 07/04/19 10:23 Levaquin 750mg/150ml IV 100 mls/hr Q24HR [facility] Administration Protocol Metolazone 2.5 mg 07/04/19 10:00 07/04/19 09:20 Zaroxolyn PO 2.5 mg Q48HR [facility] Administration Nitroglycerin 0.4 mg 07/02/19 11:35 Nitrostat SL Q5M PRN Chest Pain Ondansetron HCl 4 mg 03/20/20 11:31 Zofran IV Q8H PRN Nausea And Vomiting Potassium Chloride 20 meq 07/02/19 14:00 07/04/19 23:35 Potassium Chloride PO 20 meq QID [facility] Administration Pravastatin Sodium 10 mg 07/02/19 22:00 07/04/19 23:34 Pravachol PO 10 mg QHS [facility] Administration Pregabalin 150 mg 07/02/19 22:00 07/04/19 23:34 Pregabalin PO 150 mg BID [facility] Administration Sodium Chloride 10 ml 07/02/19 22:00 07/04/19 23:35 Sodium Chloride Flush Syringe 10 Ml IV 10 ml BID [facility] Administration Sodium Chloride 10 ml 07/02/19 11:31 07/04/19 06:34 Sodium Chloride Flush Syringe 10 Ml IV 10 ml PRN PRN Administration LINE FLUSH Nutrition/Malnutrition Assess - Dietary Evaluation Nutrition/Malnutrition Findings: Nutrition Notes Start: 07/03/19 10:56 Freq: Status: Active Protocol: Document 07/03/19 10:56 LM (Rec: 07/03/19 11:12 LM [id number]) Nutrition Notes Need for Assessment generated from: MD Order,medical insurance coding specialist,MST Initial or Follow up Assessment Current Diagnosis Hypertension,Heart Failure Other Pertinent Diagnosis SOB, suspected pneu, L leg wound Current Diet Cardiac Labs/Tests Reviewed Pertinent Medications Reviewed Height 5 ft 6 in Weight 99.79 kg Usual Body Weight 100 kg [place] Body Weight (kg) 59.09 BMI 35.5 Intake Prior to Admission Poor Weight Status Obese Subjective/Other Information MD consult for poor oral intakes/ONS and RN screen for MST. Pt stated she was not eating much at home for 3 days and just started to eat again last night and this morning. Notice pt is with L leg wound. Food preferences taken. Will order Ensure for pt once daily . Burn Absent Trauma Absent GI Symptoms None Current % PO Fair (50-74%) Minimum of two criteria No Fluid Accumulation Mild (non-severe) #2 Nutrition Diagnosis Increased nutrient needs ( specify in comment below) Comments: Protein Etiology Wound healing As Evidenced by Signs and Symptoms Pt with L leg wound #1 Nutrition Diagnosis Inadequate oral intake Etiology SOB, fever, suspected pneu As Evidenced by Signs and Symptoms Pt with poor intakes for 4 days Is patient on ventilator? No Is Patient Ambulatory and/or Out of Bed Yes REE-([place]. Jeor-ambulatory/OOB) [ 2026.545 [id number]] Kcal/Kg value to use for calculation 16 Approximate Energy Requirements Using 1597 kcal/Kg Calculation Used for Recommendations Kcal/kg Additional Notes Protein: 100-120g (1.25-1.5g/ kg using AdjBW 80kg) Fluid: 1 ml/kcal Nutrition Intervention Change Diet Order: Continue cardiac Add Supplement/Snack (indicate name/kcal Ensure Enlive strawberry and /protein ) chocolate daily Provides kCal: 350 Provides Protein (gm) 20 Goal #1 Meet at least 75% of energy and protein needs Goal #2 Wound healing Anticipated Discharge Needs: Cardiac Follow-Up By: 07/06/19 Additional Comments F/U for intakes
--- NOTE | 2019-07-05 10:26 | Progress Note ---
Assessment and Plan Paroxysmal Atrial fibrillation not on oral anticoagulation due to history of epitaxis on beta blockers Suspected pneumonia as per cxr droplet isolation and testing for COVID-19 Hx of ischemic cardiomyopathy Hx of CAD with CABG in 2013 at [place] [facility] -on plavix Hypertension Continue medical therapy for paroxysmal atrial fibrillation, ischemic cardiomyopathy and coronary artery disease as tolerated. Subjective Date of service: 07/05/19 Interval history: No cardiac complaints reported. She reports her breathing has improved. Stable sinus rhythm on telemetry. Objective Vital Signs Temp Pulse Pulse Resp Resp BP Pulse Ox 07/05/19 05:44 97.8 F 61 18 139/65 100 07/05/19 02:00 82 07/04/19 23:35 65 157/73 07/04/19 22:26 98.7 F 61 16 157/73 100 07/04/19 21:03 85 20 97 07/04/19 17:00 98.5 F 62 22 152/63 100 07/04/19 14:55 63 20 97 07/04/19 11:08 98.5 F 65 20 130/64 94 - Physical Examination General: No Apparent Distress Cardiac: Positive: Reg Rate and Rhythm
[2019-07-05] MEDS: PREGABALIN 75 MG CAP PO SCH ×2 (10:54→23:48)
[2019-07-05] MEDS: carvediloL 6.25 MG TAB PO SCH (10:54)
[2019-07-05] MEDS: POTASSIUM CHLORIDE 20 MEQ PACKET PO SCH ×4 (10:54→23:49)
[2019-07-05] MEDS: ENOXAPARIN 40 MG/0.4 ML INJ SUB-Q SCH (10:55)
[2019-07-05] MEDS: CLOPIDOGREL 75 MG TAB PO SCH (10:55)
[2019-07-05 12:04] LABS: Basophils % (Auto) 0.4 % (0.0-1.8); Eosinophils # (Auto) 0.2 K/mm3 (0.0-0.4); Eosinophils % (Auto) 2.6 % (0.0-4.3); Hematocrit 35.5 % (30.3-42.9); Lymphocytes # (Auto) 1.1 K/mm3 (1.2-5.4); Lymphocytes % (Auto) 17.4 % (13.4-35.0); Mean Corpuscular HGB Conc 31 % (30-34); Mean Corpuscular Volume 80 fl (79-97); Monocytes # (Auto) 0.5 K/mm3 (0.0-0.8); Monocytes % (Auto) 7.4 % (0.0-7.3); Platelet Count 112 K/mm3 (140-440); Red Blood Count 4.44 M/mm3 (3.65-5.03); Red Cell Distribution Width 18.6 % (13.2-15.2)
[2019-07-05 12:25] LABS: BUN/Creatinine Ratio 18; Blood Urea Nitrogen 16 mg/dL (7-17); Calcium 9.5 mg/dL (8.4-10.2); Hemolysis Index 9
--- NOTE | 2019-07-05 15:06 | Progress Note ---
Assessment and Plan Cultures: Blood culture 07/02/2019 no growth to date A/P:63-year-old female past medical history obesity, CHF, hypertension, hyperlipidemia, ischemic cardiomyopathy status post CABG admitted with shortness of breath, concern for COVID-19 #COVID-19 rule out: Survey filled out by primary team, greatly appreciate their assistance. Follow-up with [facility] for test results. Okay to continue empiric antibiotics to complete 5 total days. No evidence on imaging, however patient with normal white count increased troponins. Cardiology team concern, however may just be cardiogenic in origin. Lower suspicion for COVID-19 in this patient. #CHF #HTN Recs: -Obtain sputum culture -Continue droplet and contact precautions -Follow-up [facility] COVID-19 testing -Complete 5 days of levofloxacin -Patient had significant medical comorbidities, as such discharged prior to receiving test results need to be considered cautiously. It is not inherently contraindicated, though chronically unwell patients have poor outcomes decompensate quickly. - Patient may be discharged when medically stable if testing swabs have been obtained. Upon discharge patient should self-quarantine at home until COVID testing returns. If negative, self-quarantine may end. If positive patient should self-quarantine for 14 days from symptom beginning. Public health and infection prevention will follow up with patients to notify them of their test results. Patients should return to hospital regardless if they have worsening fevers or respiratory status. Thank you for the consult, will continue to follow Lebron Stephenson MD [facility] M: [phone] O: [phone] F: [phone] Subjective Date of service: 07/05/19 Interval history: No acute complaints at this time, afebrile with normal white count. Objective - Exam Narrative Exam: Physical Exam: Constitutional: Alert, cooperative. No acute distress Head, Ears, Nose: Normocephalic, atraumatic. External ears, nose normal Neck: Supple, no meningeal signs Oral: dentition fair, no thrush Cardiovascular: S1, S2 normal. Respiratory: Good air entry, clear to auscultation bilaterally GI: Soft, non-tender; bowel sounds normal. No peritoneal signs. Musculoskeletal: No pedal edema, no cyanosis. Skin: No rash or abscess Hem/Lymphatic: No palpable cervical or supraclavicular nodes. No lymphangitis Psych: Mood ok. Affect normal Neurological: Awake, alert, oriented. No gross abnormality - Constitutional Vitals: Vital Signs Temp Pulse Resp BP Pulse Ox 97.8 F 59 L 20 149/85 96 07/05/19 11:48 07/05/19 14:28 07/05/19 14:28 07/05/19 11:48 07/05/19 11:48 Temperature -Last 24 Hours Temperature 97.8 F Temperature 97.8 F Temperature 98.7 F Temperature 98.5 F - Labs CBC & Chem 7: 07/05/19 11:20 07/05/19 11:20 Labs: Abnormal lab results 07/04/19 07/05/19 07/05/19 Range/Units 22:36 11:20 11:20 MCH 25 L (28-32) pg RDW 18.6 H (13.2-15.2) % Plt Count 112 L (140-440) K/mm3 [place] % (Auto) 7.4 H (0.0-7.3) % Lymph # 1.1 L (1.2-5.4) K/mm3 Seg Neutrophils % 72.2 H (40.0-70.0) % Chloride 96.5 L (98-107) mmol/L Glucose 130 H (65-100) mg/dL POC Glucose 140 H (70-105)
[2019-07-05] MEDS: SACUBITRIL/VALSARTAN 24-26 MG TAB PO SCH ×2 (16:32→23:49)
[2019-07-05] MEDS: PRAVASTATIN 20 MG TAB PO SCH (23:48)
[2019-07-06] MEDS: carvediloL 6.25 MG TAB PO SCH ×3 (00:10→22:09)
[2019-07-06] MEDS: ACETAMINOPHEN 325 MG TAB PO PRN ×5 (00:31→22:09)
[2019-07-06] MEDS: FUROSEMIDE 40 MG/4 ML INJ IV SCH (05:08)
[2019-07-06] MEDS: levoFLOXacin 750 MG TAB PO SCH (09:43)
[2019-07-06] MEDS: POTASSIUM CHLORIDE 20 MEQ PACKET PO SCH ×4 (09:43→22:09)
[2019-07-06] MEDS: SACUBITRIL/VALSARTAN 24-26 MG TAB PO SCH ×2 (09:43→22:08)
[2019-07-06] MEDS: CLOPIDOGREL 75 MG TAB PO SCH (09:43)
[2019-07-06] MEDS: PREGABALIN 75 MG CAP PO SCH ×2 (09:44→22:08)
[2019-07-06] MEDS: ENOXAPARIN 40 MG/0.4 ML INJ SUB-Q SCH (09:44)
[2019-07-06] MEDS: metOLazone 2.5 MG TAB PO SCH (09:44)
[2019-07-06] MEDS: IPRATROPIUM/ALBUTEROL SULFATE 3 ML AMPUL.NEB IH SCH ×3 (10:13→21:30)
--- NOTE | 2019-07-06 11:34 | Progress Note ---
Assessment and Plan Paroxysmal Atrial fibrillation not on oral anticoagulation due to history of epitaxis on beta blockers Suspected pneumonia as per cxr droplet isolation and testing for COVID-19 Hx of ischemic cardiomyopathy echo shows a 4 chamber dilated cardiomyopathy, LVEF 40-45%. Hx of CAD with CABG in 2012 at [place] [facility] -on plavix Hypertension Continue medical therapy for paroxysmal atrial fibrillation, ischemic cardiomyopathy and coronary artery disease as tolerated. Subjective Date of service: 07/06/19 Interval history: No cardiac complaints reported. Stable sinus rhythm on telemetry. Objective Vital Signs Temp Pulse Pulse Pulse Pulse Resp Resp 07/06/19 09:44 66 07/06/19 09:00 64 64 17 07/06/19 05:08 98.4 F 66 16 07/05/19 21:52 98.1 F 61 18 07/05/19 20:29 07/05/19 20:17 66 20 07/05/19 16:10 98.7 F 61 20 07/05/19 14:28 59 L 20 07/05/19 11:48 97.8 F 72 20 BP Pulse Ox 07/06/19 09:44 115/57 07/06/19 09:00 97 07/06/19 05:08 110/55 100 07/05/19 21:52 114/55 100 07/05/19 20:29 99 07/05/19 20:17 07/05/19 16:10 112/50 96 07/05/19 14:28 07/05/19 11:48 149/85 96 - Physical Examination General: No Apparent Distress HEENT: Positive: PERRL Neck: Positive: neck supple Cardiac: Positive: Reg Rate and Rhythm - Labs and Meds CBC 07/05/19 Range/Units 11:20 WBC 6.5 (4.5-11.0) K/mm3 RBC 4.44 (3.65-5.03) M/mm3 Hgb 11.0 (10.1-14.3) gm/dl Hct 35.5 (30.3-42.9) % Plt Count 112 L (140-440) K/mm3 Lymph # 1.1 L (1.2-5.4) K/mm3 Baker # 0.5 (0.0-0.8) K/mm3 Eos # 0.2 (0.0-0.4) K/mm3 Baso # 0.0 (0.0-0.1) K/mm3 Comprehensive Metabolic Panel 07/05/19 Range/Units 11:20 Sodium 140 (137-145) mmol/L Potassium 3.8 (3.6-5.0) mmol/L Chloride 96.5 L (98-107) mmol/L Carbon Dioxide 28 (22-30) mmol/L BUN 16 (7-17) mg/dL Creatinine 0.9 (0.7-1.2) mg/dL Glucose 130 H (65-100) mg/dL Calcium 9.5 (8.4-10.2) mg/dL
--- NOTE | 2019-07-06 13:24 | Progress Note ---
Assessment and Plan Cultures: Blood culture 07/02/2019 no growth to date A/P:63-year-old female past medical history obesity, CHF, hypertension, hyperlipidemia, ischemic cardiomyopathy status post CABG admitted with shortness of breath, concern for COVID-19 #COVID-19 rule out: Survey filled out by primary team, greatly appreciate their assistance. Follow-up with [facility] for test results. Okay to continue empiric antibiotics to complete 5 total days. No evidence on imaging, however patient with normal white count increased troponins. Cardiology team concern, however may just be cardiogenic in origin. Lower suspicion for COVID-19 in this patient. #CHF #HTN Recs: -Obtain sputum culture -Continue droplet and contact precautions -Follow-up [facility] COVID-19 testing -Complete 5 days of levofloxacin -Patient had significant medical comorbidities, as such discharged prior to receiving test results need to be considered cautiously. It is not inherently contraindicated, though chronically unwell patients have poor outcomes decompensate quickly. Typically the respiratory decompensation happens approximately a week into the illness. - Patient may be discharged when medically stable if testing swabs have been obtained. Upon discharge patient should self-quarantine at home until COVID testing returns. If negative, self-quarantine may end. If positive patient should self-quarantine for 14 days from symptom beginning. Public health and infection prevention will follow up with patients to notify them of their test results. Patients should return to hospital regardless if they have worsening fevers or respiratory status. Thank you for the consult, will continue to follow Lebron Stephenson MD [facility] M: [phone] O: [phone] F: [phone] Subjective Date of service: 07/06/19 Interval history: Afebrile, normal white count. Vital signs stable, no acute change today. Objective - Exam Narrative Exam: Physical Exam: Constitutional: Alert, cooperative. No acute distress Head, Ears, Nose: Normocephalic, atraumatic. External ears, nose normal Oral: dentition fair, no thrush Cardiovascular: S1, S2 normal. Respiratory: Good air entry, clear to auscultation bilaterally GI: Soft, non-tender; bowel sounds normal. No peritoneal signs. Musculoskeletal: No pedal edema, no cyanosis. Skin: No rash or abscess Hem/Lymphatic: No palpable cervical or supraclavicular nodes. No lymphangitis Psych: Mood ok. Affect normal Neurological: Awake, alert, oriented. No gross abnormality - Constitutional Vitals: Vital Signs Temp Pulse Resp BP Pulse Ox 98.4 F 66 15 115/57 97 07/06/19 05:08 07/06/19 09:44 07/06/19 11:59 07/06/19 09:44 07/06/19 09:00 Temperature -Last 24 Hours Temperature 98.4 F Temperature 98.1 F Temperature 98.7 F - Labs CBC & Chem 7: 07/05/19 11:20 07/05/19 11:20
--- NOTE | 2019-07-06 16:33 | Progress Note ---
Assessment and Plan Assessment and plan: Acute systolic CHF exacerbation. Patient with elevated beta natruretic peptide and chest x-ray findings revealing chronic changes/pleural thickening. Patient has no evidence of fever or leukopenia/lymphopenia. No reports of cough. Patient denies contact with a person quarantine for COVID19 exposure or with a COVID19+ patient. Cardiology reports suspicion for CO VID19. ?COVID19. Cardiology suspects. We will check procalcitonin, lactic acid and d-dimer. Consider CTA of chest. Survey form submitted. ID consultation. Hyperlipidemia. Continue statin. Morbid obesity. Patient will be counseled on weight loss, diet and lifestyle modifications at discharge. Hypokalemia. Replete potassium. 07/04/2019lactic acid level mildly elevated and procalcitonin level normal. Check CT scan of the chest for groundglass infiltrates given COVID19 suspicion. ID consultation pending. Patient reported no cough previously but reporting more coughing last night and today. 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 07/05/2019patient is afebrile with a normal white count. Continue empiric Levaquin. CT scan of the chest shows no obvious consolidation, only atelectasis bilaterally. No groundglass opacities. Cardiology team concern with COVID19, however may just be cardiogenic in origin. Elevated troponin per cardiology. Continue droplet and contact precautions for now and obtain sputum culture. 07/06/2019 Less shortness of breath. Covid test not done yet. Still awaiting to hear from [facility]. History Interval history: shortness of breath Hospitalist Physical - Physical exam Narrative exam: GEN: Not in acute distress, lying in bed,obese HEENT: Normocephalic, atraumatic, Neck: supple, No JVD Lungs: Bilateral crackles, heart;S1 and S2 reg, tachy, no murmurs, rubs or gallop Abd:soft, non tender, non distended, normal bowel sounds Ext: No edema, no clubbing, no cyanosis, Neuro: AAO x 3. No focal neuro signs - Constitutional Vitals: Temp Pulse Resp BP Pulse Ox 98.4 F 66 15 115/57 97 07/06/19 05:08 07/06/19 09:44 07/06/19 15:47 07/06/19 09:44 07/06/19 09:00 General appearance: Present: no acute distress, well-nourished SAVAGE score - Savage Score Age > 65: (0) No Aspirin use within the Past 7 Days: (0) No 3 or more CAD Risk Factors: (0) No 2 or more Angina events in past 24 hrs: (0) No Known CAD with more than 50% Stenosis: (0) No Elevated Cardiac Markers: (0) No ST Deviation Greater than 0.5mm: (0) No SAVAGE Score: 0 Results - Labs CBC & Chem 7: 07/05/19 11:20 07/05/19 11:20 Labs: Laboratory Last Values WBC 6.5 K/mm3 (4.5-11.0) 07/05/19 11:20 RBC 4.44 M/mm3 (3.65-5.03) 07/05/19 11:20 Hgb 11.0 gm/dl (10.1-14.3) 07/05/19 11:20 Hct 35.5 % (30.3-42.9) 07/05/19 11:20 MCV 80 fl (79-97) 07/05/19 11:20 MCH 25 pg (28-32) L 07/05/19 11:20 MCHC 31 % (30-34) 07/05/19 11:20 RDW 18.6 % (13.2-15.2) H 07/05/19 11:20 Plt Count 112 K/mm3 (140-440) L 07/05/19 11:20 Lymph % (Auto) 17.4 % (13.4-35.0) 07/05/19 11:20 [place] % (Auto) 7.4 % (0.0-7.3) H 07/05/19 11:20 Eos % (Auto) 2.6 % (0.0-4.3) 07/05/19 11:20 Baso % (Auto) 0.4 % (0.0-1.8) 07/05/19 11:20 Lymph # 1.1 K/mm3 (1.2-5.4) L 07/05/19 11:20 [place] # 0.5 K/mm3 (0.0-0.8) 07/05/19 11:20 Eos # 0.2 K/mm3 (0.0-0.4) 07/05/19 11:20 Baso # 0.0 K/mm3 (0.0-0.1) 07/05/19 11:20 Seg Neutrophils % 72.2 % (40.0-70.0) H 07/05/19 11:20 Seg Neutrophils # 4.7 K/mm3 (1.8-7.7) 07/05/19 11:20 D-Dimer 466.24 ng/mlDDU (0-234) H 07/03/19 10:20 Sodium 140 mmol/L (137-145) 07/05/19 11:20 Potassium 3.8 mmol/L (3.6-5.0) 07/05/19 11:20 Chloride 96.5 mmol/L (98-107) L 07/05/19 11:20 Carbon Dioxide 28 mmol/L (22-30) 07/05/19 11:20 Anion Gap 19 mmol/L 07/05/19 11:20 BUN 16 mg/dL (7-17) 07/05/19 11:20 Creatinine 0.9 mg/dL (0.7-1.2) 07/05/19 11:20 Estimated GFR > 60 ml/min 07/05/19 11:20 BUN/Creatinine Ratio 18 % 07/05/19 11:20 Glucose 130 mg/dL (65-100) H 07/05/19 11:20 POC Glucose 140 (70-105) H 07/04/19 22:36 Lactic Acid 2.40 mmol/L (0.7-2.0) H* 07/03/19 20:27 Calcium 9.5 mg/dL (8.4-10.2) 07/05/19 11:20 Magnesium 1.80 mg/dL (1.7-2.3) 07/02/19 08:43 Troponin T 0.068 ng/mL (0.00-0.029) H 07/02/19 20:06 NT-Pro-B Natriuret Pep 2283 pg/mL (0-900) H 07/02/19 08:43 Triglycerides 144 mg/dL (2-149) 07/02/19 17:11 Cholesterol 123 mg/dL (50-199) 07/02/19 17:11 LDL Cholesterol Direct 70 mg/dL (50-130) 07/02/19 17:11 HDL Cholesterol 30 mg/dL (40-59) L 07/02/19 17:11 Cholesterol/HDL Ratio 4.10 % 07/02/19 17:11 Procalcitonin < 0.05 ng/mL (<0.15) 07/03/19 10:20 Microbiology: Microbiology 07/02/19 17:11 Peripheral/Venous Blood Culture - Preliminary NO GROWTH AFTER 72 HOURS 07/02/19 Unknown Peripheral/Venous Blood Culture - Preliminary NO GROWTH AFTER 72 HOURS - Diagnostic Impressions Diagnostic Impressions: Echocardiogram 07/05/19 12:22 Transthoracic Echocardiogram Indication: CHF BP: 149/85 HR: 60 Conclusions *The left ventricular chamber size is moderately dilated. *Mild to moderate concentric left ventricular hypertrophy is observed. *Global left ventricular systolic function is mild to moderately decreased. *The estimated ejection fraction is 40-45%. *The left atrium is moderately dilated. *There is mild mitral regurgitation. *There is mild aortic regurgitation. *The right heart chambers are both mild to moderately dilated. *There is at least moderate tricuspid regurgitation. *There is evidence of mild pulmonary hypertension. *The right ventricular systolic pressure is calculated at 38 mmHg. Findings Left Ventricle: The left ventricular chamber size is moderately dilated. Mild to moderate concentric left ventricular hypertrophy is observed. Global left ventricular systolic function is mild to moderately decreased. The estimated ejection fraction is 40-45%. Left Atrium: The left atrium is moderately dilated. Right Ventricle: The right ventricle is mildly dilated. Right Atrium: The right atrium is mild to moderately dilated. Aortic Valve: The aortic valve is trileaflet. The aortic valve leaflets are mildly thickened. There is mild aortic regurgitation. There is no evidence of aortic stenosis. Mitral Valve: The mitral valve leaflets are mildly thickened. There is mild mitral regurgitation. There is no evidence of mitral stenosis. Tricuspid Valve: There is moderate tricuspid regurgitation. The right ventricular systolic pressure is calculated at 38 mmHg. There is evidence of mild pulmonary hypertension. Pulmonic Valve: There is mild pulmonic regurgitation. Pericardium: There is no pericardial effusion. Aorta: There is no dilatation of the ascending aorta. There is no dilatation of the aortic root. Venous: The inferior vena cava appears normal in size. Measurements Chambers 2D Name Value Normal Range IVSd (2D) 1.24 cm (0.6 - 1.1) LVPWd (2D) 1.21 cm (0.6 - 1.1) LVIDd (2D) 4.41 cm (3.7 - 5.6) LVIDs (2D) 3.38 cm (2 - 3.8) LV FS (2D) 23.27 % - EF Teichholz (2D) 46.81 % - Ao root diameter (2D) 3.01 cm (2 - 3.7) Volumes/Mass Name Value Normal Range LA ESV SP 4CH (A/L) 52.43 ml - LA ESV SP 2CH (A/L) 56.24 ml - LA ESV BP (A/L) 56.34 ml - LA ESV BP (A/L) index 27.09 ml/m2 - LA ESV SP 4CH (MOD) 49.2 ml - LA ESV SP 2CH (MOD) 52.03 ml - LA ESV BP (MOD) 52.34 ml - LA ESV BP (MOD) index 25.16 ml/m2 - Diastolic/Systolic Function Name Value Normal Range MV E-wave Vmax 1.03 m/sec - MV deceleration time 209.29 msec - MV A-wave Vmax 0.32 m/sec - MV E:A ratio 3.18 ratio - Aortic Valve Name Value Normal Range AV Vmax 1.88 m/sec - AV VTI 33.7 cm - AV peak gradient 14.13 mmHg - AV mean gradient 7.61 mmHg - LVOT diameter 2.02 cm - LVOT Vmax 1.48 m/sec - LVOT VTI 29.19 cm - LVOT peak gradient 8.81 mmHg - LVOT mean gradient 4.96 mmHg - SV LVOT 93.49 ml - YUNIOR (continuity Vmax) 2.53 cm2 - YUNIOR (continuity VTI) 2.77 cm2 - AR PHT 644.06 msec - AR peak gradient 55.64 mmHg - Mitral Valve Name Value Normal Range MR Vmax 3.21 m/sec - Tricuspid Valve Name Value Normal Range TR Vmax 2.95 m/sec - TR peak gradient 35 mmHg - RAP 3 mmHg - RVSP 38 mmHg - Pulmonic Valve/Qp:Qs Name Value Normal Range PV Vmax 1.28 m/sec - PV peak gradient 6.55 mmHg - NC end-diastolic Vmax 1.26 m/sec - PV acceleration time 95.15 msec - Francis/IV: Voiding Method Toilet IV Catheter Type [Right INT / Saline Lock Forearm] Active Medications - Current Medications Current Medications: Generic Name Dose Route Start Last Admin Trade Name Freq PRN Reason Stop Dose Admin Acetaminophen 650 mg 07/02/19 11:31 07/06/19 15:47 Tylenol PO 650 mg Q4H PRN Administration Pain MILD(1-3)/Fever >100.5/ARIAS Albuterol/Ipratropium 1 ampul 07/03/19 08:00 07/06/19 14:50 Duoneb *Not For Prn Use* IH 1 ampul TIDRT KATALINA Administration Carvedilol 6.25 mg 07/03/19 10:00 07/06/19 09:44 Coreg PO 6.25 mg BID KATALINA Administration Clopidogrel Bisulfate 75 mg 07/03/19 10:00 07/06/19 09:43 Plavix PO 75 mg DAILY KATALINA Administration Enoxaparin Sodium 40 mg 07/03/19 10:00 07/06/19 09:44 Enoxaparin SUB-Q 40 mg QDAY KATALINA Administration Furosemide 40 mg 07/03/19 06:00 07/06/19 05:08 Lasix IV 40 mg DAILY@0600 KATALINA Administration Levofloxacin 750 mg 07/06/19 10:00 07/06/19 09:43 Levaquin PO 07/08/19 12:59 750 mg DAILY KATALINA Administration Metolazone 2.5 mg 07/04/19 10:00 07/06/19 09:44 Zaroxolyn PO 2.5 mg Q48HR KATALINA Administration Nitroglycerin 0.4 mg 07/02/19 11:35 Nitrostat SL Q5M PRN Chest Pain Ondansetron HCl 4 mg 07/02/19 11:31 Zofran IV Q8H PRN Nausea And Vomiting Potassium Chloride 20 meq 07/02/19 14:00 07/06/19 13:26 Potassium Chloride PO 20 meq QID KATALINA Administration Pravastatin Sodium 10 mg 07/02/19 22:00 07/05/19 23:48 Pravachol PO 10 mg QHS KATALINA Administration Pregabalin 150 mg 07/02/19 22:00 07/06/19 09:44 Pregabalin PO 150 mg BID KATALINA Administration Sodium Chloride 10 ml 07/02/19 22:00 07/06/19 09:45 Sodium Chloride Flush Syringe 10 Ml IV 10 ml BID KATALINA Administration Sodium Chloride 10 ml 07/02/19 11:31 07/04/19 06:34 Sodium Chloride Flush Syringe 10 Ml IV 10 ml PRN PRN Administration LINE FLUSH Nutrition/Malnutrition Assess - Dietary Evaluation Nutrition/Malnutrition Findings: Nutrition Notes Start: 07/03/19 10:56 Freq: Status: Active Protocol: Document 07/06/19 12:21 ALVIVIANA (Rec: 07/06/19 12:23 [facility] [email or web address]) Nutrition Notes Initial or Follow up Brief Note Current Diet Cardiac + Ensure Enlive daily Subjective/Other Information Pt has consumed 100% of meals since last assessment. Per [facility]OCN, pt does not have any wounds at present. Pt will await results of COVID-19 testing at home if D/C'ed. Nutrition Intervention Follow-Up By: 07/13/19 Additional Comments F/U: stable intakes, COVID test results
[2019-07-06] MEDS: PRAVASTATIN 20 MG TAB PO SCH (22:09)
[2019-07-07] MEDS: ACETAMINOPHEN 325 MG TAB PO PRN (04:38)
[2019-07-07] MEDS: FUROSEMIDE 40 MG/4 ML INJ IV SCH (05:05)
[2019-07-07] MEDS: IPRATROPIUM/ALBUTEROL SULFATE 3 ML AMPUL.NEB IH SCH ×2 (09:35→13:42)
[2019-07-07] MEDS: carvediloL 6.25 MG TAB PO SCH ×2 (10:00→21:58)
[2019-07-07] MEDS: ENOXAPARIN 40 MG/0.4 ML INJ SUB-Q SCH (10:35)
[2019-07-07] MEDS: levoFLOXacin 750 MG TAB PO SCH (10:35)
[2019-07-07] MEDS: PREGABALIN 75 MG CAP PO SCH ×2 (10:35→21:58)
[2019-07-07] MEDS: CLOPIDOGREL 75 MG TAB PO SCH (10:36)
[2019-07-07] MEDS: SACUBITRIL/VALSARTAN 24-26 MG TAB PO SCH ×2 (10:37→22:50)
[2019-07-07] MEDS: POTASSIUM CHLORIDE 20 MEQ PACKET PO SCH ×4 (10:38→21:57)
--- NOTE | 2019-07-07 11:20 | Progress Note ---
Assessment and Plan Paroxysmal Atrial fibrillation not on oral anticoagulation due to history of epitaxis on beta blockers Acute systolic heart failurefor suppression Suspected pneumonia as per cxr droplet isolation and testing for COVID-19 Hx of ischemic cardiomyopathy echo shows a 4 chamber dilated cardiomyopathy, LVEF 40-45%. Hx of CAD with CABG in 2013 at [place] [facility] -on plavix Hypertension Continue medical therapy for paroxysmal atrial fibrillation, ischemic cardiomyopathy and coronary artery disease as tolerated. Subjective Date of service: 07/07/19 Interval history: No cardiac complaints reported. Stable sinus rhythm on telemetry. Objective Vital Signs Temp Pulse Pulse Resp Resp BP BP 07/07/19 09:50 97 H 20 07/07/19 09:35 07/07/19 04:44 98.5 F 65 14 113/68 07/07/19 04:13 97.7 F 66 18 120/59 07/06/19 21:32 07/06/19 21:31 72 20 07/06/19 21:02 97.8 F 74 18 122/54 07/06/19 18:00 75 07/06/19 17:05 97.2 F L 89 19 120/78 07/06/19 16:47 15 07/06/19 15:47 15 07/06/19 14:30 82 18 07/06/19 14:25 07/06/19 12:59 15 07/06/19 12:46 97.8 F 72 20 97/53 07/06/19 11:59 15 Pulse Ox 07/07/19 09:50 07/07/19 09:35 98 07/07/19 04:44 98 07/07/19 04:13 99 07/06/19 21:32 100 07/06/19 21:31 07/06/19 21:02 97 07/06/19 18:00 07/06/19 17:05 98 07/06/19 16:47 07/06/19 15:47 07/06/19 14:30 07/06/19 14:25 99 07/06/19 12:59 07/06/19 12:46 96 07/06/19 11:59 - Physical Examination General: No Apparent Distress Cardiac: Positive: Reg Rate and Rhythm
--- NOTE | 2019-07-07 16:53 | Event Note ---
Date: 07/07/19 Dept of [facility] states patient does not meet criteria to test for Covid-19
--- NOTE | 2019-07-07 16:55 | Progress Note ---
Assessment and Plan Assessment and plan: Acute systolic CHF exacerbation. Patient with elevated beta natruretic peptide and chest x-ray findings revealing chronic changes/pleural thickening. Patient has no evidence of fever or leukopenia/lymphopenia. No reports of cough. Patient denies contact with a person quarantine for COVID19 exposure or with a COVID19+ patient. Cardiology reports suspicion for CO VID19. ?COVID19. Cardiology suspects. We will check procalcitonin, lactic acid and d-dimer. Consider CTA of chest. Survey form submitted. ID consultation. Hyperlipidemia. Continue statin. Morbid obesity. Patient will be counseled on weight loss, diet and lifestyle modifications at discharge. Hypokalemia. Replete potassium. 07/04/2019lactic acid level mildly elevated and procalcitonin level normal. Check CT scan of the chest for groundglass infiltrates given COVID19 suspicion. ID consultation pending. Patient reported no cough previously but reporting more coughing last night and today. 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 07/05/2019patient is afebrile with a normal white count. Continue empiric Levaquin. CT scan of the chest shows no obvious consolidation, only atelectasis bilaterally. No groundglass opacities. Cardiology team concern with COVID19, however may just be cardiogenic in origin. Elevated troponin per cardiology. Continue droplet and contact precautions for now and obtain sputum culture. 07/06/2019 Less shortness of breath. Covid test not done yet. Still awaiting to hear from [facility]. 07/07/2019 [facility] states patient does not meet criteria for Covid testing. I discussed this with patient. Will d/c droplet isolation. Continue contact isolation History Interval history: shortness of breath Hospitalist Physical - Physical exam Narrative exam: GEN: Not in acute distress, lying in bed,obese HEENT: Normocephalic, atraumatic, Neck: supple, No JVD Lungs: Bilateral crackles, heart;S1 and S2 reg, tachy, no murmurs, rubs or gallop Abd:soft, non tender, non distended, normal bowel sounds Ext: No edema, no clubbing, no cyanosis, Neuro: AAO x 3. No focal neuro signs - Constitutional Vitals: Temp Pulse Resp BP Pulse Ox 98.3 F 75 20 119/63 98 07/07/19 12:45 07/07/19 13:55 07/07/19 13:55 07/07/19 12:45 07/07/19 09:35 General appearance: Present: no acute distress, obese SAVAGE score - Savage Score Age > 65: (0) No Aspirin use within the Past 7 Days: (0) No 3 or more CAD Risk Factors: (0) No 2 or more Angina events in past 24 hrs: (0) No Known CAD with more than 50% Stenosis: (0) No Elevated Cardiac Markers: (0) No ST Deviation Greater than 0.5mm: (0) No SAVAGE Score: 0 Results - Labs CBC & Chem 7: 07/05/19 11:20 07/05/19 11:20 Labs: Laboratory Last Values WBC 6.5 K/mm3 (4.5-11.0) 07/05/19 11:20 RBC 4.44 M/mm3 (3.65-5.03) 07/05/19 11:20 Hgb 11.0 gm/dl (10.1-14.3) 07/05/19 11:20 Hct 35.5 % (30.3-42.9) 07/05/19 11:20 MCV 80 fl (79-97) 07/05/19 11:20 MCH 25 pg (28-32) L 07/05/19 11:20 MCHC 31 % (30-34) 07/05/19 11:20 RDW 18.6 % (13.2-15.2) H 07/05/19 11:20 Plt Count 112 K/mm3 (140-440) L 07/05/19 11:20 Lymph % (Auto) 17.4 % (13.4-35.0) 07/05/19 11:20 [place] % (Auto) 7.4 % (0.0-7.3) H 07/05/19 11:20 Eos % (Auto) 2.6 % (0.0-4.3) 07/05/19 11:20 Baso % (Auto) 0.4 % (0.0-1.8) 07/05/19 11:20 Lymph # 1.1 K/mm3 (1.2-5.4) L 07/05/19 11:20 [place] # 0.5 K/mm3 (0.0-0.8) 07/05/19 11:20 Eos # 0.2 K/mm3 (0.0-0.4) 07/05/19 11:20 Baso # 0.0 K/mm3 (0.0-0.1) 07/05/19 11:20 Seg Neutrophils % 72.2 % (40.0-70.0) H 07/05/19 11:20 Seg Neutrophils # 4.7 K/mm3 (1.8-7.7) 07/05/19 11:20 D-Dimer 466.24 ng/mlDDU (0-234) H 07/03/19 10:20 Sodium 140 mmol/L (137-145) 07/05/19 11:20 Potassium 3.8 mmol/L (3.6-5.0) 07/05/19 11:20 Chloride 96.5 mmol/L (98-107) L 07/05/19 11:20 Carbon Dioxide 28 mmol/L (22-30) 07/05/19 11:20 Anion Gap 19 mmol/L 07/05/19 11:20 BUN 16 mg/dL (7-17) 07/05/19 11:20 Creatinine 0.9 mg/dL (0.7-1.2) 07/05/19 11:20 Estimated GFR > 60 ml/min 07/05/19 11:20 BUN/Creatinine Ratio 18 % 07/05/19 11:20 Glucose 130 mg/dL (65-100) H 07/05/19 11:20 POC Glucose 140 (70-105) H 07/04/19 22:36 Lactic Acid 2.40 mmol/L (0.7-2.0) H* 07/03/19 20:27 Calcium 9.5 mg/dL (8.4-10.2) 07/05/19 11:20 Magnesium 1.80 mg/dL (1.7-2.3) 07/02/19 08:43 Troponin T 0.068 ng/mL (0.00-0.029) H 07/02/19 20:06 NT-Pro-B Natriuret Pep 2283 pg/mL (0-900) H 07/02/19 08:43 Triglycerides 144 mg/dL (2-149) 07/02/19 17:11 Cholesterol 123 mg/dL (50-199) 07/02/19 17:11 LDL Cholesterol Direct 70 mg/dL (50-130) 07/02/19 17:11 HDL Cholesterol 30 mg/dL (40-59) L 07/02/19 17:11 Cholesterol/HDL Ratio 4.10 % 07/02/19 17:11 Procalcitonin < 0.05 ng/mL (<0.15) 07/03/19 10:20 Microbiology: Microbiology 07/02/19 17:11 Peripheral/Venous Blood Culture - Preliminary NO GROWTH AFTER 4 DAYS 07/02/19 Unknown Peripheral/Venous Blood Culture - Preliminary NO GROWTH AFTER 4 DAYS - Diagnostic Impressions Diagnostic Impressions: Echocardiogram 07/05/19 12:22 Transthoracic Echocardiogram Indication: CHF BP: 149/85 HR: 60 Conclusions *The left ventricular chamber size is moderately dilated. *Mild to moderate concentric left ventricular hypertrophy is observed. *Global left ventricular systolic function is mild to moderately decreased. *The estimated ejection fraction is 40-45%. *The left atrium is moderately dilated. *There is mild mitral regurgitation. *There is mild aortic regurgitation. *The right heart chambers are both mild to moderately dilated. *There is at least moderate tricuspid regurgitation. *There is evidence of mild pulmonary hypertension. *The right ventricular systolic pressure is calculated at 38 mmHg. Findings Left Ventricle: The left ventricular chamber size is moderately dilated. Mild to moderate concentric left ventricular hypertrophy is observed. Global left ventricular systolic function is mild to moderately decreased. The estimated ejection fraction is 40-45%. Left Atrium: The left atrium is moderately dilated. Right Ventricle: The right ventricle is mildly dilated. Right Atrium: The right atrium is mild to moderately dilated. Aortic Valve: The aortic valve is trileaflet. The aortic valve leaflets are mildly thickened. There is mild aortic regurgitation. There is no evidence of aortic stenosis. Mitral Valve: The mitral valve leaflets are mildly thickened. There is mild mitral regurgitation. There is no evidence of mitral stenosis. Tricuspid Valve: There is moderate tricuspid regurgitation. The right ventricular systolic pressure is calculated at 38 mmHg. There is evidence of mild pulmonary hypertension. Pulmonic Valve: There is mild pulmonic regurgitation. Pericardium: There is no pericardial effusion. Aorta: There is no dilatation of the ascending aorta. There is no dilatation of the aortic root. Venous: The inferior vena cava appears normal in size. Measurements Chambers 2D Name Value Normal Range IVSd (2D) 1.24 cm (0.6 - 1.1) LVPWd (2D) 1.21 cm (0.6 - 1.1) LVIDd (2D) 4.41 cm (3.7 - 5.6) LVIDs (2D) 3.38 cm (2 - 3.8) LV FS (2D) 23.27 % - EF Teichholz (2D) 46.81 % - Ao root diameter (2D) 3.01 cm (2 - 3.7) Volumes/Mass Name Value Normal Range LA ESV SP 4CH (A/L) 52.43 ml - LA ESV SP 2CH (A/L) 56.24 ml - LA ESV BP (A/L) 56.34 ml - LA ESV BP (A/L) index 27.09 ml/m2 - LA ESV SP 4CH (MOD) 49.2 ml - LA ESV SP 2CH (MOD) 52.03 ml - LA ESV BP (MOD) 52.34 ml - LA ESV BP (MOD) index 25.16 ml/m2 - Diastolic/Systolic Function Name Value Normal Range MV E-wave Vmax 1.03 m/sec - MV deceleration time 209.29 msec - MV A-wave Vmax 0.32 m/sec - MV E:A ratio 3.18 ratio - Aortic Valve Name Value Normal Range AV Vmax 1.88 m/sec - AV VTI 33.7 cm - AV peak gradient 14.13 mmHg - AV mean gradient 7.61 mmHg - LVOT diameter 2.02 cm - LVOT Vmax 1.48 m/sec - LVOT VTI 29.19 cm - LVOT peak gradient 8.81 mmHg - LVOT mean gradient 4.96 mmHg - SV LVOT 93.49 ml - YUNIOR (continuity Vmax) 2.53 cm2 - YUNIOR (continuity VTI) 2.77 cm2 - AR PHT 644.06 msec - AR peak gradient 55.64 mmHg - Mitral Valve Name Value Normal Range MR Vmax 3.21 m/sec - Tricuspid Valve Name Value Normal Range TR Vmax 2.95 m/sec - TR peak gradient 35 mmHg - RAP 3 mmHg - RVSP 38 mmHg - Pulmonic Valve/Qp:Qs Name Value Normal Range PV Vmax 1.28 m/sec - PV peak gradient 6.55 mmHg - MN end-diastolic Vmax 1.26 m/sec - PV acceleration time 95.15 msec - Francis/IV: Voiding Method Toilet IV Catheter Type [Right INT / Saline Lock Forearm] Active Medications - Current Medications Current Medications: Generic Name Dose Route Start Last Admin Trade Name Freq PRN Reason Stop Dose Admin Acetaminophen 650 mg 07/02/19 11:31 07/07/19 04:38 Tylenol PO 650 mg Q4H PRN Administration Pain MILD(1-3)/Fever >100.5/ARIAS Albuterol/Ipratropium 1 ampul 07/03/19 08:00 07/07/19 13:42 Duoneb *Not For Prn Use* IH 1 ampul TIDRT KATALINA Administration Carvedilol 6.25 mg 07/03/19 10:00 07/07/19 10:00 Coreg PO Not Given BID KATALINA Clopidogrel Bisulfate 75 mg 07/03/19 10:00 07/07/19 10:36 Plavix PO 75 mg DAILY KATALINA Administration Enoxaparin Sodium 40 mg 07/03/19 10:00 07/07/19 10:35 Enoxaparin SUB-Q 40 mg QDAY KATALINA Administration Furosemide 40 mg 07/03/19 06:00 07/07/19 05:05 Lasix IV Not Given DAILY@0600 KATALINA Levofloxacin 750 mg 07/06/19 10:00 07/07/19 10:35 Levaquin PO 07/08/19 12:59 750 mg DAILY KATALINA Administration Metolazone 2.5 mg 07/04/19 10:00 07/06/19 09:44 Zaroxolyn PO 2.5 mg Q48HR KATALINA Administration Nitroglycerin 0.4 mg 07/02/19 11:35 Nitrostat SL Q5M PRN Chest Pain Ondansetron HCl 4 mg 07/02/19 11:31 Zofran IV Q8H PRN Nausea And Vomiting Potassium Chloride 20 meq 07/02/19 14:00 07/07/19 13:34 Potassium Chloride PO 20 meq QID KATALINA Administration Pravastatin Sodium 10 mg 07/02/19 22:00 07/06/19 22:09 Pravachol PO 10 mg QHS KATALINA Administration Pregabalin 150 mg 07/02/19 22:00 07/07/19 10:35 Pregabalin PO 150 mg BID KATALINA Administration Sodium Chloride 10 ml 07/02/19 22:00 07/07/19 10:38 Sodium Chloride Flush Syringe 10 Ml IV 10 ml BID KATALINA Administration Sodium Chloride 10 ml 07/02/19 11:31 07/04/19 06:34 Sodium Chloride Flush Syringe 10 Ml IV 10 ml PRN PRN Administration LINE FLUSH Nutrition/Malnutrition Assess - Dietary Evaluation Nutrition/Malnutrition Findings: Nutrition Notes Start: 07/03/19 10:56 Freq: Status: Active Protocol: Document 07/06/19 12:21 [facility] (Rec: 07/06/19 12:23 [facility] [id number]) Nutrition Notes Initial or Follow up Brief Note Current Diet Cardiac + Ensure Enlive daily Subjective/Other Information Pt has consumed 100% of meals since last assessment. Per WOCN, pt does not have any wounds at present. Pt will await results of COVID-19 testing at home if D/C'ed. Nutrition Intervention Follow-Up By: 07/13/19 Additional Comments F/U: stable intakes, COVID test results
--- NOTE | 2019-07-07 17:41 | Progress Note ---
Assessment and Plan Cultures: Blood culture 07/02/2019 no growth to date A/P:63-year-old female past medical history obesity, CHF, hypertension, hyperlipidemia, ischemic cardiomyopathy status post CABG admitted with shortness of breath, concern for COVID-19 #COVID-19 rule out: Survey filled out by primary team, greatly appreciate their assistance. Follow-up with [facility] for test results. Okay to continue empiric antibiotics to complete 5 total days. No evidence on imaging, however patient with normal white count increased troponins. Cardiology team concern, however may just be cardiogenic in origin. Lower suspicion for COVID-19 in this patient. #CHF #HTN Recs: -DPH denied testing for COVID-19 -Patient currently off antibiotics -OK to transfer from cohort ayala and stop isolation Thank you for the consult, will sign off. Please call with questions. Lebron Stephenson MD [facility] ([facility]) M: [phone] O: [phone] F: [phone] Subjective Date of service: 07/07/19 Interval history: Afebrile, normal white count. Vital signs stable, no acute change today. Objective - Exam Narrative Exam: Physical Exam: Constitutional: Alert, cooperative. No acute distress Cardiovascular: S1, S2 normal. Respiratory: Good air entry, clear to auscultation bilaterally GI: Soft, non-tender; bowel sounds normal. No peritoneal signs. Musculoskeletal: No pedal edema, no cyanosis. Skin: No rash or abscess Hem/Lymphatic: No palpable cervical or supraclavicular nodes. No lymphangitis Psych: Mood ok. Affect normal Neurological: Awake, alert, oriented. No gross abnormality - Constitutional Vitals: Vital Signs Temp Pulse Resp BP Pulse Ox 98.3 F 75 20 119/63 98 07/07/19 12:45 07/07/19 13:55 07/07/19 13:55 07/07/19 12:45 07/07/19 09:35 Temperature -Last 24 Hours Temperature 98.3 F Temperature 98.5 F Temperature 97.7 F Temperature 97.8 F - Labs CBC & Chem 7: 07/05/19 11:20 07/05/19 11:20
[2019-07-07] MEDS: PRAVASTATIN 20 MG TAB PO SCH (21:57)
[2019-07-08] MEDS: ACETAMINOPHEN 325 MG TAB PO PRN (00:34)
[2019-07-08] MEDS: IPRATROPIUM/ALBUTEROL SULFATE 3 ML AMPUL.NEB IH SCH ×3 (00:56→15:46)
[2019-07-08] MEDS: FUROSEMIDE 40 MG/4 ML INJ IV SCH (05:21)
[2019-07-08] MEDS: carvediloL 6.25 MG TAB PO SCH (07:30)
[2019-07-08] MEDS ORDERED: REGADENOSON 0.4 MG/5 ML INJ IV ONE ×2 (08:37→08:46)
--- NOTE | 2019-07-08 13:20 | Event Note ---
Date: 07/08/19 Lexiscan thallium stress done today, we found a small fixed apical defect, no ischemia. EF 43%. Cardiac stable, no further workup indicated, OK for cardiac discharge. Patient should follow up with our office 2 weeks post discharge.
--- NOTE | 2019-07-08 14:09 | Progress Note ---
Hospitalist Physical - Constitutional Vitals: Temp Pulse Resp BP Pulse Ox 97.6 F 79 18 115/58 100 07/08/19 07:47 07/08/19 07:47 07/08/19 07:47 07/08/19 10:37 07/08/19 07:47 General appearance: Present: no acute distress, obese SAVAGE score - Savage Score Age > 65: (0) No Aspirin use within the Past 7 Days: (0) No 3 or more CAD Risk Factors: (0) No 2 or more Angina events in past 24 hrs: (0) No Known CAD with more than 50% Stenosis: (0) No Elevated Cardiac Markers: (0) No ST Deviation Greater than 0.5mm: (0) No SAVAGE Score: 0 Results - Labs CBC & Chem 7: 07/05/19 11:20 07/05/19 11:20 Labs: Laboratory Last Values WBC 6.5 K/mm3 (4.5-11.0) 07/05/19 11:20 RBC 4.44 M/mm3 (3.65-5.03) 07/05/19 11:20 Hgb 11.0 gm/dl (10.1-14.3) 07/05/19 11:20 Hct 35.5 % (30.3-42.9) 07/05/19 11:20 MCV 80 fl (79-97) 07/05/19 11:20 MCH 25 pg (28-32) L 07/05/19 11:20 MCHC 31 % (30-34) 07/05/19 11:20 RDW 18.6 % (13.2-15.2) H 07/05/19 11:20 Plt Count 112 K/mm3 (140-440) L 07/05/19 11:20 Lymph % (Auto) 17.4 % (13.4-35.0) 07/05/19 11:20 [place] % (Auto) 7.4 % (0.0-7.3) H 07/05/19 11:20 Eos % (Auto) 2.6 % (0.0-4.3) 07/05/19 11:20 Baso % (Auto) 0.4 % (0.0-1.8) 07/05/19 11:20 Lymph # 1.1 K/mm3 (1.2-5.4) L 07/05/19 11:20 [place] # 0.5 K/mm3 (0.0-0.8) 07/05/19 11:20 Eos # 0.2 K/mm3 (0.0-0.4) 07/05/19 11:20 Baso # 0.0 K/mm3 (0.0-0.1) 07/05/19 11:20 Seg Neutrophils % 72.2 % (40.0-70.0) H 07/05/19 11:20 Seg Neutrophils # 4.7 K/mm3 (1.8-7.7) 07/05/19 11:20 D-Dimer 466.24 ng/mlDDU (0-234) H 07/03/19 10:20 Sodium 140 mmol/L (137-145) 07/05/19 11:20 Potassium 3.8 mmol/L (3.6-5.0) 07/05/19 11:20 Chloride 96.5 mmol/L (98-107) L 07/05/19 11:20 Carbon Dioxide 28 mmol/L (22-30) 07/05/19 11:20 Anion Gap 19 mmol/L 07/05/19 11:20 BUN 16 mg/dL (7-17) 07/05/19 11:20 Creatinine 0.9 mg/dL (0.7-1.2) 07/05/19 11:20 Estimated GFR > 60 ml/min 07/05/19 11:20 BUN/Creatinine Ratio 18 % 07/05/19 11:20 Glucose 130 mg/dL (65-100) H 07/05/19 11:20 POC Glucose 140 (70-105) H 07/04/19 22:36 Lactic Acid 2.40 mmol/L (0.7-2.0) H* 07/03/19 20:27 Calcium 9.5 mg/dL (8.4-10.2) 07/05/19 11:20 Magnesium 1.80 mg/dL (1.7-2.3) 07/02/19 08:43 Troponin T 0.068 ng/mL (0.00-0.029) H 07/02/19 20:06 NT-Pro-B Natriuret Pep 2283 pg/mL (0-900) H 07/02/19 08:43 Triglycerides 144 mg/dL (2-149) 07/02/19 17:11 Cholesterol 123 mg/dL (50-199) 07/02/19 17:11 LDL Cholesterol Direct 70 mg/dL (50-130) 07/02/19 17:11 HDL Cholesterol 30 mg/dL (40-59) L 07/02/19 17:11 Cholesterol/HDL Ratio 4.10 % 07/02/19 17:11 Procalcitonin < 0.05 ng/mL (<0.15) 07/03/19 10:20 Microbiology: Microbiology 07/02/19 17:11 Peripheral/Venous Blood Culture - Final NO GROWTH AFTER 5 DAYS 07/02/19 Unknown Peripheral/Venous Blood Culture - Final NO GROWTH AFTER 5 DAYS - Diagnostic Impressions Diagnostic Impressions: Echocardiogram 07/05/19 12:22 Transthoracic Echocardiogram Indication: CHF BP: 149/85 HR: 60 Conclusions *The left ventricular chamber size is moderately dilated. *Mild to moderate concentric left ventricular hypertrophy is observed. *Global left ventricular systolic function is mild to moderately decreased. *The estimated ejection fraction is 40-45%. *The left atrium is moderately dilated. *There is mild mitral regurgitation. *There is mild aortic regurgitation. *The right heart chambers are both mild to moderately dilated. *There is at least moderate tricuspid regurgitation. *There is evidence of mild pulmonary hypertension. *The right ventricular systolic pressure is calculated at 38 mmHg. Findings Left Ventricle: The left ventricular chamber size is moderately dilated. Mild to moderate concentric left ventricular hypertrophy is observed. Global left ventricular systolic function is mild to moderately decreased. The estimated ejection fraction is 40-45%. Left Atrium: The left atrium is moderately dilated. Right Ventricle: The right ventricle is mildly dilated. Right Atrium: The right atrium is mild to moderately dilated. Aortic Valve: The aortic valve is trileaflet. The aortic valve leaflets are mildly thickened. There is mild aortic regurgitation. There is no evidence of aortic stenosis. Mitral Valve: The mitral valve leaflets are mildly thickened. There is mild mitral regurgitation. There is no evidence of mitral stenosis. Tricuspid Valve: There is moderate tricuspid regurgitation. The right ventricular systolic pressure is calculated at 38 mmHg. There is evidence of mild pulmonary hypertension. Pulmonic Valve: There is mild pulmonic regurgitation. Pericardium: There is no pericardial effusion. Aorta: There is no dilatation of the ascending aorta. There is no dilatation of the aortic root. Venous: The inferior vena cava appears normal in size. Measurements Chambers 2D Name Value Normal Range IVSd (2D) 1.24 cm (0.6 - 1.1) LVPWd (2D) 1.21 cm (0.6 - 1.1) LVIDd (2D) 4.41 cm (3.7 - 5.6) LVIDs (2D) 3.38 cm (2 - 3.8) LV FS (2D) 23.27 % - EF Teichholz (2D) 46.81 % - Ao root diameter (2D) 3.01 cm (2 - 3.7) Volumes/Mass Name Value Normal Range LA ESV SP 4CH (A/L) 52.43 ml - LA ESV SP 2CH (A/L) 56.24 ml - LA ESV BP (A/L) 56.34 ml - LA ESV BP (A/L) index 27.09 ml/m2 - LA ESV SP 4CH (MOD) 49.2 ml - LA ESV SP 2CH (MOD) 52.03 ml - LA ESV BP (MOD) 52.34 ml - LA ESV BP (MOD) index 25.16 ml/m2 - Diastolic/Systolic Function Name Value Normal Range MV E-wave Vmax 1.03 m/sec - MV deceleration time 209.29 msec - MV A-wave Vmax 0.32 m/sec - MV E:A ratio 3.18 ratio - Aortic Valve Name Value Normal Range AV Vmax 1.88 m/sec - AV VTI 33.7 cm - AV peak gradient 14.13 mmHg - AV mean gradient 7.61 mmHg - LVOT diameter 2.02 cm - LVOT Vmax 1.48 m/sec - LVOT VTI 29.19 cm - LVOT peak gradient 8.81 mmHg - LVOT mean gradient 4.96 mmHg - SV LVOT 93.49 ml - YUNIOR (continuity Vmax) 2.53 cm2 - YUNIOR (continuity VTI) 2.77 cm2 - AR PHT 644.06 msec - AR peak gradient 55.64 mmHg - Mitral Valve Name Value Normal Range MR Vmax 3.21 m/sec - Tricuspid Valve Name Value Normal Range TR Vmax 2.95 m/sec - TR peak gradient 35 mmHg - RAP 3 mmHg - RVSP 38 mmHg - Pulmonic Valve/Qp:Qs Name Value Normal Range PV Vmax 1.28 m/sec - PV peak gradient 6.55 mmHg - ME end-diastolic Vmax 1.26 m/sec - PV acceleration time 95.15 msec - Francis/IV: Voiding Method Toilet IV Catheter Type [Right INT / Saline Lock Forearm] Active Medications - Current Medications Current Medications: Generic Name Dose Route Start Last Admin Trade Name Freq PRN Reason Stop Dose Admin Acetaminophen 650 mg 07/02/19 11:31 07/08/19 00:34 Tylenol PO 650 mg Q4H PRN Administration Pain MILD(1-3)/Fever >100.5/ARIAS Albuterol/Ipratropium 1 ampul 07/03/19 08:00 07/08/19 10:32 Duoneb *Not For Prn Use* IH Not Given TIDRT [facility] Carvedilol 6.25 mg 07/03/19 10:00 07/07/19 21:58 Coreg PO 6.25 mg BID KATALINA Administration Clopidogrel Bisulfate 75 mg 07/03/19 10:00 07/07/19 10:36 Plavix PO 75 mg DAILY [facility] Administration Enoxaparin Sodium 40 mg 07/03/19 10:00 07/07/19 10:35 Enoxaparin SUB-Q 40 mg QDAY KATALINA Administration Furosemide 40 mg 07/03/19 06:00 07/08/19 05:21 Lasix IV Not Given DAILY@0600 [facility] Metolazone 2.5 mg 07/04/19 10:00 07/06/19 09:44 Zaroxolyn PO 2.5 mg Q48HR KATALINA Administration Nitroglycerin 0.4 mg 07/02/19 11:35 Nitrostat SL Q5M PRN Chest Pain Ondansetron HCl 4 mg 07/02/19 11:31 Zofran IV Q8H PRN Nausea And Vomiting Potassium Chloride 20 meq 07/02/19 14:00 07/07/19 21:57 Potassium Chloride PO 20 meq QID KATALINA Administration Pravastatin Sodium 10 mg 07/02/19 22:00 07/07/19 21:57 Pravachol PO 10 mg QHS KTAALINA Administration Pregabalin 150 mg 07/02/19 22:00 07/07/19 21:58 Pregabalin PO 150 mg BID KATALINA Administration Sodium Chloride 10 ml 07/02/19 22:00 07/07/19 21:59 Sodium Chloride Flush Syringe 10 Ml IV 10 ml BID KATALINA Administration Sodium Chloride 10 ml 07/02/19 11:31 07/04/19 06:34 Sodium Chloride Flush Syringe 10 Ml IV 10 ml PRN PRN Administration LINE FLUSH Nutrition/Malnutrition Assess - Dietary Evaluation Nutrition/Malnutrition Findings: Nutrition Notes Start: 07/03/19 10:56 Freq: Status: Active Protocol: Document 07/06/19 12:21 [facility] (Rec: 07/06/19 12:23 [facility] [id number]) Nutrition Notes Initial or Follow up Brief Note Current Diet Cardiac + Ensure Enlive daily Subjective/Other Information Pt has consumed 100% of meals since last assessment. Per WOCN, pt does not have any wounds at present. Pt will await results of COVID-19 testing at home if D/C'ed. Nutrition Intervention Follow-Up By: 07/13/19 Additional Comments F/U: stable intakes, COVID test results
[2019-07-08] MEDS: metOLazone 2.5 MG TAB PO SCH (14:14)
[2019-07-08 14:27] VITALS: BP 123/57
--- NOTE | 2019-07-08 14:30 | Discharge Summary ---
Providers - Providers Date of Admission: 07/02/19 11:32 Date of discharge: 07/08/19 Attending physician: MAURI YARBROUGH 07/02/19 10:20 Consult to Physician [CONS] Urgent Comment: Consulting Provider: FIORELLA GALAVIZ Physician Instructions: Reason For Exam: sob, cad, chf 07/02/19 17:47 Consult to Dietitian/Nutrition [CONS] Routine Physician Instructions: Reason For Exam: Reason for Consult: Poor oral intake 07/03/19 04:10 Consult to Wound/ET Nurse [CONS] Routine Reason For Exam: wound eval 07/03/19 11:28 Consult to Physician [CONS] Routine Comment: Consulting Provider: ADIA JOHN Physician Instructions: Reason For Exam: ?? COVID Primary care physician: BUSINESS DEVELOPMENT MANAGER Hospitalization Condition: Fair Disposition: DC-01 TO HOME OR SELFCARE Exam - Constitutional Vitals: Temp Pulse Resp BP Pulse Ox 97.6 F 79 18 115/58 100 07/08/19 07:47 07/08/19 07:47 07/08/19 07:47 07/08/19 10:37 07/08/19 07:47 Plan Activity: advance as tolerated Diet: low fat, low cholesterol, low salt Plan of Treatment: 1.Follow up with PCP in 1 week. 2.Follow up with cardiology in 1 week Follow up with: PRIMARY CARE, [Primary Care Provider] - 7 Days Prescriptions: carvediloL [Coreg] 6.25 mg PO BID #60 tablet
--- NOTE | 2019-07-08 15:04 | Treadmill Report ---
THALLIUM STRESS TEST REPORT LEFT VENTRICLE: Left ventricular chamber size is within normal spread. Perfusion study demonstrates a small fixed apical defect with minimal to no significant reversibility on the resting study. Gated analysis demonstrates mild left ventricular systolic dysfunction with ejection fraction 43%. CONCLUSION: Small fixed apical defect may represent normal apical thinning, cannot exclude a small prior apical infarct. There is no significant reversible ischemia demonstrated on this study. Recommend clinical correlation. JOB# [id number] CA/NTS
== END 2019-07-08 18:00 | disposition home or self-care (01) | DRG 308 ==
LOC: ED 08:22 → 4A 10:13 → OBSVTOIN 11:32 → 3A 13:17 → 2B-ACE 07-07 20:52
PROVIDERS: ADMIT Hospitalist; ATTEND Internal Medicine
DX: I48.0 Paroxysmal atrial fibrillation (principal); I50.23 Acute on chronic systolic (congestive) heart failure; I11.0 Hypertensive heart disease with heart failure; E87.6 Hypokalemia; E78.00 Pure hypercholesterolemia, unspecified; E66.9 Obesity, unspecified; I25.10 Atherosclerotic heart disease of native coronary artery without angina pectoris; I25.5 Ischemic cardiomyopathy; E66.01 Morbid (severe) obesity due to excess calories; Z68.35 Body mass index [BMI] 35.0-35.9, adult; Z71.3 Dietary counseling and surveillance; Z95.1 Presence of aortocoronary bypass graft; Z79.899 Other long term (current) drug therapy
CPT/HCPCS: 36415; 71046; 71250; 78452; 80048; 80061; 82140; 82962; 83735; 83880; 84145; 84484; 85025; 85379; 87040; 93005; 93010; 93017; 93306; 94640; 94760; 96365; G0378; A9270-GY; A9502; J0456; J0696; J1650; J1940; J1956; J2785; J7050